=== PATIENT | male | born 1975 | race Caucasian/White ===

== ENCOUNTER 2017-04-25 12:07 | Inpatient (IN) | payer MEDICAID ==
[~2017-04-25] VITALS: Ht 167.6 cm; Wt 88.1 kg
[~2017-04-25 12:07] MED LIST: LANT3I SC; METF500T PO; NATE60TA8 PO; SULF1TAB31 PO
[2017-04-25] MEDS ORDERED: SODIUM CHLORIDE 0.9% 1L BAG IV* STA (13:53)
[2017-04-25] MEDS ORDERED: VANCOMYCIN 1 GM (PMX) 250 ML IVPB SCH (14:00)
[2017-04-25] MEDS ORDERED: IBUPROFEN 600 MG TAB PO ONE (14:00)
[2017-04-25] MEDS ORDERED: CEFTRIAXONE 1 GM/50 ML (PMX) 50 ML IVPB ONE (14:00)
[2017-04-25] MEDS ORDERED: INSULIN LISPRO 100 UNIT/ML VIAL SC STA (14:42)
[2017-04-25 14:45] LABS: BASOPHIL # 0.1 10^3/ul (0.0-0.1); BASOPHILS % 0.7 % (0.0-2.0); EOSINOPHILS # 0.2 10^3/ul (0.0-0.5); HEMOGLOBIN 15.5 g/dl (14.0-18.0); LYMPHOCYTES # 1.4 10^3/ul (0.8-2.9); LYMPHOCYTES % 13.2 % (15.0-51.0); MEAN CORPUSCULAR HEMOGLOBIN 28.1 pg (29.0-33.0); MEAN CORPUSCULAR HGB CONC 33.7 g/dl (32.0-37.0); MEAN CORPUSCULAR VOLUME 83.3 fl (82.0-101.0); MEAN PLATELET VOLUME 9.1 fl (7.4-10.4); MONOCYTE # 0.7 10^3/ul (0.3-0.9); MONOCYTES % 6.3 % (0.0-11.0); NEUTROPHIL # 8.3 10^3/ul (1.6-7.5); NEUTROPHILS % 77.4 % (39.0-77.0); PLATELET COUNT 380 10^3/UL (140-415); RED BLOOD COUNT 5.52 10^6/ul (4.70-6.10); WHITE BLOOD COUNT 10.7 10^3/ul (4.8-10.8)
[2017-04-25 14:46] LABS: ADD UMIC NO; UR ASCORBIC ACID NEGATIVE (NEGATIVE); UR BILIRUBIN (Dip) NEGATIVE (NEGATIVE); UR BLOOD (Dip) NEGATIVE (NEGATIVE); UR CLARITY CLEAR (CLEAR); UR COLOR STRAW (YELLOW); UR GLUCOSE (Dip) 3+ mg/dL (NEGATIVE); UR KETONES (Dip) TRACE mg/dL (NEGATIVE); UR LEUKOCYTE ESTERASE (Dip) NEGATIVE Leu/ul (NEGATIVE); UR NITRITE (Dip) NEGATIVE (NEGATIVE); UR SPECIFIC GRAVITY (Dip) 1.036 (1.003-1.030); UR TOTAL PROTEIN (Dip) NEGATIVE (NEGATIVE); UR UROBILINOGEN (Dip) NEGATIVE (NEGATIVE)
[2017-04-25 15:04] LABS: INR 0.92; PROTIME 12.4 Sec (12.2-14.2)
[2017-04-25 15:05] LABS: PARTIAL THROMBOPLASTIN TIME 28.6 Sec (25.0-35.0)
--- NOTE | 2017-04-25 15:19 | RADRPT ---
PROCEDURE: Left knee radiographs. CLINICAL INDICATION: Left knee pain. TECHNIQUE: Three views. Weight bearing. Frontal, lateral, and oblique. COMPARISON: No prior studies are available for comparison. FINDINGS: There is no fracture or dislocation. There is soft tissue swelling anterior to the proximal tibia and the patella. Articular surfaces are intact. There is no lytic or blastic lesion. There is no radiopaque foreign body. IMPRESSION: 1. Soft tissue swelling to the proximal tibia and the patella. 2. Otherwise unremarkable images of the left knee. RPTAT: QQ .Foreign Guerrero MD, MD Date Time Electronically viewed and signed by .Foreign Guerrero MD, on 04/25/2017 15:18 .R/
[2017-04-25 15:39] LABS: ALANINE AMINOTRANSFERASE 19 IU/L (13-69); ALBUMIN 4.8 g/dl (3.3-4.9); ALBUMIN/GLOBULIN RATIO 1.11; ALKALINE PHOSPHATASE 235 IU/L (42-121); ANION GAP 16 (8-16); ASPARTATE AMINO TRANSFERASE 19 IU/L (15-46); BILIRUBIN,INDIRECT 0.3 mg/dl (0-1.1); BILIRUBIN,TOTAL 0.3 mg/dl (0.2-1.3); BLOOD UREA NITROGEN 11 mg/dl (7-20); CARBON DIOXIDE 29 mmol/L (21-31); CHLORIDE 95 mmol/L (97-110); CREATININE 0.67 mg/dl (0.61-1.24); POTASSIUM 4.3 mmol/L (3.5-5.1); SODIUM 136 mmol/L (135-144); TOTAL PROTEIN 9.1 g/dl (6.1-8.1)
[2017-04-25 15:43] LABS: GLUCOSE 539 mg/dl (70-220)
[2017-04-25 15:53] LABS: TROPONIN-I < 0.012 ng/ml (0.00-0.12)
[2017-04-25] MEDS ORDERED: BISACODYL 10 MG SUPP PR PRN (16:00)
[2017-04-25] MEDS ORDERED: ACETAMINOPHEN 650 MG SUPP PR PRN (16:00)
[2017-04-25] MEDS ORDERED: VANCOMYCIN IV PER PHARMACY XX SCH (16:00)
[2017-04-25] MEDS ORDERED: DOCUSATE SODIUM 100 MG CAP PO PRN (16:00)
[2017-04-25] MEDS ORDERED: NACL 0.9% 3 ML SYG IV SCH (16:00)
[2017-04-25] MEDS ORDERED: morphine 2 MG INJ IV PRN (16:00)
[2017-04-25] MEDS ORDERED: ONDANSETRON 4 MG INJ IV PRN (16:00)
[2017-04-25] MEDS ORDERED: HYDROCODONE/APAP (5/325) TAB PO PRN ×2 (16:00)
[2017-04-25] MEDS ORDERED: MAGNESIUM HYDROXIDE 30ML CUP PO PRN (16:00)
--- NOTE | 2017-04-25 16:06 | ERA ---
ER Documentation Chief Complaint Date/Time DATE: 04/25/17 TIME: 15:58 Chief Complaint LEFT KNEE SWELLING/PAIN X 2 DAYS HPI 41-year-old man complains of left lower extremity pain, swelling, redness 2-3 days. 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 He has had tactile fevers for 1 day, denies vomiting or diarrhea, no paresis or paresthesias, no chest pain or shortness of breath, no recent antibiotic use. Patient denies difficulty ambulating or difficulty bending and extending his knees. ROS All systems reviewed and are negative except as per history of present illness. Medications Home Meds Active Scripts Sulfamethoxazole-Trimethoprim (Bactrim DS Tablet) 800-160 Mg Tab, 1 TAB PO BID for 7 Days, TAB Prov:KEV ALEMAN NP 06/14/15 Insulin Glargine* (Lantus*) 100 Unit/Ml Soln, 20 UNIT SC HS for 30 Days Prov:KEV ALEMAN NP 06/14/15 Metformin Hcl (Glucophage) 500 Mg Tab, 1000 MG PO AC BREAKFAST BEDTIME for 30 Days Prov:KEV ALEMAN NP 06/14/15 Nateglinide* (Starlix*) 60 Mg Tab, 60 MG PO AC MEALS for 30 Days Prov:KEV ALEMAN NP 06/14/15 Allergies Allergies: Coded Allergies: No Known Allergy (Unverified , 06/01/15) PMhx/Soc Diabetes mellitus History of Surgery: No Anesthesia Reaction: No Hx Neurological Disorder: No Hx Respiratory Disorders: No Hx Cardiac Disorders: No Hx Psychiatric Problems: No Hx Miscellaneous Medical Probl: Yes (uncontrolled DM NON COMPLAINT ) Hx Alcohol Use: Yes (BEER TOO MANY) Hx Substance Use: No Hx Tobacco Use: No Smoking Status: Unknown if ever smoked FmHx Family History: No diabetes Physical Exam Vitals Vital Signs Date Time Temp Pulse Resp B/P Pulse Ox O2 Delivery O2 Flow Rate FiO2 04/25/17 12:12 98.7 120 19 122/78 99 Physical Exam GENERAL: Well-developed, well-nourished, well-hydrated, in no apparent distress , looks nontoxic in appearance HEENT: Moist mucous membranes, pink conjunctiva, no cervical spine tenderness or step-off deformities, no goiter, no jaundice or icterus, extraocular movements intact without pain. No submandibular induration, and no pharyngeal erythema NEURO: Alert and oriented 3, cranial nerves II through XII intact bilaterally, pupils equal round reactive to light, no focal deficits or facial asymmetry, sensation intact distally Strength 5/5 in upper and lower extremities bilaterally CARDIAC: Tachycardic and regular, no murmurs rubs or gallops LUNGS: Clear bilaterally no wheezing crackles or stridor ABDOMEN: Soft nontender, no guarding, no rigidity, no rebound, no psoas sign no obturator sign. Normoactive bowel sounds SKIN: Large zone of skin erythema and induration to the anterior aspect of the lower leg beginning at the knee and spreading downward, early abscess formation without purulent discharge EXTREMITIES: No clubbing cyanosis or edema, calves are bilaterally symmetrical, no Homans sign, no popliteal cord sign. Distal pulses equal and bilateral PSYCH: Normal affect without agitation or irritability Result Diagram: 04/25/17 1430 04/25/17 1430 Results 24 hrs Laboratory Tests Test 04/25/17 14:29 04/25/17 14:30 Bedside Glucose 463mg/dL White Blood Count 10.710^3/ul Red Blood Count 5.5210^6/ul Hemoglobin 15.5g/dl Hematocrit 46.0% Mean Corpuscular Volume 83.3fl Mean Corpuscular Hemoglobin 28.1pg Mean Corpuscular Hemoglobin Concent 33.7g/dl Red Cell Distribution Width 12.0% Platelet Count 82130^3/UL Mean Platelet Volume 9.1fl Neutrophils % 77.4% Lymphocytes % 13.2% Monocytes % 6.3% Eosinophils % 2.0% Basophils % 0.7% Nucleated Red Blood Cells % 0.0/100WBC Neutrophils # 8.310^3/ul Lymphocytes # 1.410^3/ul Monocytes # 0.710^3/ul Eosinophils # 0.210^3/ul Basophils # 0.110^3/ul Nucleated Red Blood Cells # 0.010^3/ul Prothrombin Time 12.4Sec Prothrombin Time Ratio 1.0 INR International Normalized Ratio 0.92 Activated Partial Thromboplast Time 28.6Sec Urine Color STRAW Urine Clarity CLEAR Urine pH 6.0 Urine Specific [place] 1.036 Urine Ketones TRACEmg/dL Urine Nitrite NEGATIVEmg/dL Urine Bilirubin NEGATIVEmg/dL Urine Urobilinogen NEGATIVEmg/dL Urine Leukocyte Esterase NEGATIVELeu/ul Urine Hemoglobin NEGATIVEmg/dL Urine Glucose 3+mg/dL Urine Total Protein NEGATIVEmg/dl Sodium Level 136mmol/L Potassium Level 4.3mmol/L Chloride Level 95mmol/L Carbon Dioxide Level 29mmol/L Anion Gap 16 Blood Urea Nitrogen 11mg/dl Creatinine 0.67mg/dl Glucose Level 539mg/dl Lactic Acid Level 1.4mmol/L Calcium Level 10.0mg/dl Total Bilirubin 0.3mg/dl Direct Bilirubin 0.00mg/dl Indirect Bilirubin 0.3mg/dl Aspartate Amino Transf (AST/SGOT) 19IU/L Alanine Aminotransferase (ALT/SGPT) 19IU/L Alkaline Phosphatase 235IU/L Troponin I < 0.012ng/ml Total Protein 9.1g/dl Albumin 4.8g/dl Globulin 4.30g/dl Albumin/Globulin Ratio 1.11 Current Medications Medications (Trade) Dose Ordered Sig/Delisa Route PRN Reason Start Time Stop Time Status Last Admin Dose Admin Sodium Chloride (NS) 2,710 ml BOLUS OVER 2 HOURS STAT IV* 04/25/17 13:53 04/25/17 13:56 DC 04/25/17 14:42 Ibuprofen 600 mg 600 mg ONCE ONCE PO 04/25/17 14:00 04/25/17 14:01 DC 04/25/17 14:40 Ceftriaxone Sodium 50 ml @ 100 mls/hr ONCE ONCE IVPB 04/25/17 14:00 04/25/17 14:29 DC 04/25/17 14:41 Vancomycin HCl (Vancocin) 250 ml @ 125 mls/hr ONCE IVPB 04/25/17 14:00 04/25/17 15:59 04/25/17 15:52 Insulin Human Lispro (Humalog) 10 unit ONCE STAT SC 04/25/17 14:42 04/25/17 14:43 DC Procedures/MDM IV line was established patient was placed on cnmt rhythm strip revealed a sinus tachycardia at 120 bpm with upright P and T waves. Patient was afebrile. Blood cultures were ordered results are pending I will follow-up. I administered 2 L normal saline intravenously, ceftriaxone 1 g IV and vancomycin 1 g IV as well as ibuprofen 600 mg p.o.For hyperglycemia administered lispro insulin 10 units subcutaneous injection 1. CBC was normal electrolytes revealed hyperglycemia 539, liver function tests normal, troponin negative, lactic acid level low. Urine analysis negative for infection. X-ray left knee 3V Interpreted by me: Bones: No fracture Joints: No dislocation Foreign body: None Patient admitted to [facility] for continued medical management and IV antibiotics. Departure Diagnosis: Primary Impression: Type 2 diabetes mellitus with hyperglycemia Qualified Code: E11.65 - Type 2 diabetes mellitus with hyperglycemia, with long-term current use of insulin Additional Impression: Cellulitis of left leg Condition: JM Frye MD Apr 25, 2017 16:06
[2017-04-25] MEDS ORDERED: GLUCAGON 1 MG INJ IM PRN (16:30)
[2017-04-25] MEDS ORDERED: GLUCOSE GEL 15 GRAM TUBE BUCCAL PRN (16:30)
[2017-04-25] MEDS ORDERED: DEXTROSE 50% 50 ML SYRINGE IV PRN ×2 (16:30)
[2017-04-25] MEDS ORDERED: GLUCOSE GEL 15 GRAM TUBE PO PRN ×2 (16:30)
--- NOTE | 2017-04-25 17:11 | HP ---
Date/Time of Note Date/Time of Note DATE: 04/25/17 TIME: 17:06 Assessment/Plan VTE Prophylaxis VTE Prophylaxis Intervention: SCD's Assessment/Plan Chief Complaint/Hosp Course Assessment and plan 1. Left lower extremity cellulitis. Failed outpatient treatment with oral antibiotic. Will start on vancomycin. Consider ID consultation. 2. Diabetes. Patient reports not taking his diabetic medication for over a year. He reports he just stopped taking the medication. A1c was noted at 13.3. Will get clinical unit educator to follow. Start insulin regimen for now. 3.Elevated alkaline phosphatase. Etiology unknown. Monitor level. Admission process time greater than 40 minutes Discussed plan of care with Dr. Knapp Problems: HPI/ROS Admit Date/Time Admit Date/Time Hx of Present Illness This is a 41-year-old male with history of diabetes reportedly stopped taking his diabetic medication over year ago (was only on oral antidiabetic medication ) who came to [facility] due to reports of left knee swelling and erythema or 3 days duration. Patient did report that he was taking oral antibiotic with Bactrim however he had no real improvement. He also reported some pain and difficulty with bending his left knee. He still reports being able to ambulate however. No other associated symptoms. No nausea or vomiting or chills or fevers. He subsequently went to [facility] for further evaluation.On examination patient did have an x-ray of his left lower extremity that showed soft tissue swelling to the proximal tibia and to the patella but otherwise unremarkable. He did have blood work drawn that did show him to have glucose as high as 539 and A1c of 13.3. He remained afebrile. We will evaluate him for the aformentiond issues. PMH/Family/Social Past Medical History Medical/surgical history 1. 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, nl mental status, nl speech Skin: other (erythema left lower extremity) Labs Result Diagram: 04/25/17 1430 04/25/17 1430 Medications Medications Current Medications Ondansetron HCl (Zofran Inj) 4 mg Q6H PRN IV NAUSEA AND/OR VOMITING; Start at 16:00 Acetaminophen (Tylenol Tab) 650 mg Q6H PRN PO PAIN LEVEL 1-3 OR FEVER; Start at 16:00 Acetaminophen (Tylenol Supp) 650 mg Q6H PRN [place] PAIN LEVEL 1-3 OR FEVER; Start 04/25/17 at 16:00 Acetaminophen/ Hydrocodone Bitart ([place] (5/325)) 1 tab Q6H PRN PO MODERATE PAIN LEVEL 4-6; Start 04/25/17 at 16:00 Acetaminophen/ Hydrocodone Bitart ([place] (5/325)) 2 tab Q6H PRN PO SEVERE PAIN LEVEL 7-10; Start 04/25/17 at 16:00 Morphine Sulfate (morphine) 2 mg Q4H PRN IV SEVERE PAIN LEVEL 7-10; Start 04/25 at 16:00 Docusate Sodium (Colace) 100 mg Q12H PRN PO CONSTIPATION; Start 04/25/17 at 16: 00 Magnesium Hydroxide (Milk Of Mag) 30 ml DAILY PRN PO CONSTIPATION; Start at 16:00 Bisacodyl (Dulcolax Supp) 10 mg DAILY PRN [place] CONSTIPATION; Start 04/25/17 at 16 :00 Pantoprazole (Protonix Iv) 40 mg DAILY@06 IV ; Start 04/26/17 at 06:00 Diagnostic Test (Pha) (Accu-Chek) 1 ea 02 XX ; Start 04/26/17 at 02:00 Insulin Glargine (Lantus) 22 unit DAILY@20 SC ; Start 04/25/17 at 20:00 Miscellaneous Information 1 ea NOTE XX ; Start 04/25/17 at 16:30 Glucose (Glutose) 15 gm Q15M PRN PO DECREASED GLUCOSE; Start 04/25/17 at 16:30 Glucose (Glutose) 22.5 gm Q15M PRN PO DECREASED GLUCOSE; Start 04/25/17 at 16: 30 Dextrose (D50w Syringe) 25 ml Q15M PRN IV DECREASED GLUCOSE; Start 04/25/17 at 16:30 Dextrose (D50w Syringe) 50 ml Q15M PRN IV DECREASED GLUCOSE; Start 04/25/17 at 16:30 Glucagon (Glucagen) 1 mg Q15M PRN IM DECREASED GLUCOSE; Start 04/25/17 at 16:30 Glucose 15 gm 15 gm Q15M PRN BUCCAL DECREASED GLUCOSE; Start 04/25/17 at 16:30 Vancomycin HCl 750 mg/Sodium Chloride 150 ml @ 75 mls/hr ONCE IVPB ; Start at 18:00; Stop 04/25/17 at 19:59 Vancomycin HCl (Vancocin) 250 ml @ 125 mls/hr Q8H IVPB ; Start 04/26/17 at 02: 00 JIM BOOGIE Apr 25, 2017 17:11
[2017-04-25] MEDS ORDERED: VANCOMYCIN 750 MG in SOD CHLORIDE 0.9% 150 ML IVPB SCH (18:00)
[2017-04-25] MEDS ORDERED: INSULIN ASPART [NOVOLOG] 3 ML PEN SC SCH (18:00)
[2017-04-25 18:37] VITALS: PULSE 90; TEMP 99.3
[2017-04-25 20:00] VITALS: Ht 167.6 cm; Wt 88.1 kg
[2017-04-25] MEDS ORDERED: INSULIN GLARGINE [LANtus] 3 ML PEN SC SCH (20:00)
[2017-04-25] MEDS: INSULIN ASPART [NOVOLOG] 3 ML PEN SC SCH ×3 (20:00→21:00)
[2017-04-25 20:19] VITALS: BP 141/86; RESP 18
[2017-04-25] MEDS: INSULIN GLARGINE [LANtus] 3 ML PEN SC SCH (23:40)
[2017-04-26] MEDS: ACCU-CHEK XX SCH (02:00)
[2017-04-26 02:38] VITALS: BP 145/83; RESP 18
[2017-04-26] MEDS: VANCOMYCIN 1 GM in NS 250 ML IVPB SCH ×3 (03:26→18:36)
[2017-04-26] MEDS: PANTOPRAZOLE 40 MG INJ IV SCH (05:44)
[2017-04-26 06:53] LABS: ALBUMIN 2.9 g/dl (3.3-4.9); ALBUMIN/GLOBULIN RATIO 1.07; BILIRUBIN,INDIRECT 0.4 mg/dl (0-1.1); BILIRUBIN,TOTAL 0.4 mg/dl (0.2-1.3); CALCIUM 8.7 mg/dl (8.4-10.2); CHOL/HDL RATIO 2.6 RATIO; CREATININE 0.52 mg/dl (0.61-1.24); MAGNESIUM 2.1 mg/dl (1.7-2.5); PHOSPHORUS 2.9 mg/dl (2.5-4.9); TOTAL PROTEIN 5.6 g/dl (6.1-8.1)
[2017-04-26 07:04] LABS: T3 UPTAKE 41.3 % (23.5-40.5)
[2017-04-26 07:17] LABS: THYROID STIMULATING HORMONE 1.52 MIU/L (0.465-4.680)
[2017-04-26] MEDS: INSULIN ASPART [NOVOLOG] 3 ML PEN SC SCH ×7 (08:08→20:41)
[2017-04-26 08:12] VITALS: BP 122/75; RESP 18
[2017-04-26 14:00] VITALS: BP 133/77; RESP 18
[2017-04-26] MEDS: CEFTRIAXONE 1 GM/50 ML (PMX) 50 ML IVPB SCH (14:34)
--- NOTE | 2017-04-26 15:41 | PN ---
Date/Time of Note Date/Time of Note DATE: 04/26/17 TIME: 15:40 Assessment/Plan VTE Prophylaxis VTE Prophylaxis Intervention: SCD's Lines/Catheters IV Catheter Type (from Nrsg): Saline Lock Assessment/Plan Assessment/Plan 1. LLE cellutiisl, left knee cellulitis 2. Poorly controlled DM ,? non compliance 3. Intracatble left knee pain Plan : pt failed outpatient PO abx, Continue IV abx vancomycin, Monitor Cr and electrolyts Diaebtic nurse education consult will follow up SCD for DVT prophylaxis Subjective 24 Hr Interval Summary Free Text/Dictation c/o left knee pain, BP stable, on IV abx vancomycin Exam/Review of Systems Vital Signs Vitals Vital Signs Date Time Temp Pulse Resp B/P Pulse Ox O2 Delivery O2 Flow Rate FiO2 04/26/17 14:00 99.1 96 18 133/77 97 04/25/17 18:37 Room Air Intake and Output 04/25/17 04/25/17 04/26/17 15:00 23:00 07:00 Intake Total 150 ml 250 ml Balance 150 ml 250 ml Exam Constitutional: alert, oriented Psych: nl mood/affect Head: normocephalic Eyes: nl conjunctiva Neck: supple, No jvd Respiratory: clear to auscultation, normal air movement Cardiovascular: regular rate and rhythm Gastrointestinal: soft Musculoskeletal: swelling (left lower extremity with erythema) 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, nl mental status, nl speech Skin: other (erythema left lower extremity) Results Result Diagram: 04/25/17 1430 04/26/17 0541 Results 24 hrs Laboratory Tests Test 04/25/17 16:09 04/25/17 16:40 04/25/17 18:40 04/25/17 20:16 Bedside Glucose 316 H 198 Lactic Acid Level 1.2 1.0 Test 04/25/17 20:23 04/25/17 22:35 04/25/17 23:37 04/26/17 05:41 Bedside Glucose 162 116 237 H Sodium Level 136 Potassium Level 4.0 Chloride Level 104 Carbon Dioxide Level 27 Anion Gap 9 # Blood Urea Nitrogen 8 Creatinine 0.52 L Glucose Level 225 #H Hemoglobin A1c 12.8 H Calcium Level 8.7 Phosphorus Level 2.9 Magnesium Level 2.1 Total Bilirubin 0.4 Direct Bilirubin 0.00 Indirect Bilirubin 0.4 Aspartate Amino Transf (AST/SGOT) 12 L Alanine Aminotransferase (ALT/SGPT) 24 Alkaline Phosphatase 114 # Total Protein 5.6 #L Albumin 2.9 #L Globulin 2.70 Albumin/Globulin Ratio 1.07 Triglycerides Level 89 Cholesterol Level 111 LDL Cholesterol, Calculated 51 HDL Cholesterol 42 Cholesterol/HDL Ratio 2.6 Thyroid Stimulating Hormone (TSH) 1.520 Free Thyroxine Index 3.01 Thyroxine (T4) 7.3 Triiodothyronine (T3) Uptake 41.3 H Test 04/26/17 07:56 04/26/17 12:01 Bedside Glucose 184 120 Medications Medications Current Medications Ondansetron HCl (Zofran Inj) 4 mg Q6H PRN IV NAUSEA AND/OR VOMITING; Start at 16:00 Acetaminophen (Tylenol Tab) 650 mg Q6H PRN PO PAIN LEVEL 1-3 OR FEVER; Start at 16:00 Acetaminophen (Tylenol Supp) 650 mg Q6H PRN OR PAIN LEVEL 1-3 OR FEVER; Start 04/25/17 at 16:00 Acetaminophen/ Hydrocodone Bitart ([place] (5/325)) 1 tab Q6H PRN PO MODERATE PAIN LEVEL 4-6; Start 04/25/17 at 16:00 Acetaminophen/ Hydrocodone Bitart ([place] (5/325)) 2 tab Q6H PRN PO SEVERE PAIN LEVEL 7-10 Last administered on 04/26/17 03:35; Admin Dose 2 TAB; Start at 16:00 Morphine Sulfate (morphine) 2 mg Q4H PRN IV SEVERE PAIN LEVEL 7-10; Start 04/25 at 16:00 Docusate Sodium (Colace) 100 mg Q12H PRN PO CONSTIPATION; Start 04/25/17 at 16: 00 Magnesium Hydroxide (Milk Of Mag) 30 ml DAILY PRN PO CONSTIPATION; Start at 16:00 Bisacodyl (Dulcolax Supp) 10 mg DAILY PRN OR CONSTIPATION; Start 04/25/17 at 16 :00 Pantoprazole (Protonix Iv) 40 mg DAILY@06 IV Last administered on 04/26/17 05: 44; Admin Dose 40 MG; Start 04/26/17 at 06:00 Diagnostic Test (Pha) (Accu-Chek) 1 ea 02 XX ; Start 04/26/17 at 02:00 Miscellaneous Information 1 ea NOTE XX ; Start 04/25/17 at 16:30 Glucose (Glutose) 15 gm Q15M PRN PO DECREASED GLUCOSE; Start 04/25/17 at 16:30 Glucose (Glutose) 22.5 gm Q15M PRN PO DECREASED GLUCOSE; Start 04/25/17 at 16: 30 Dextrose (D50w Syringe) 25 ml Q15M PRN IV DECREASED GLUCOSE; Start 04/25/17 at 16:30 Dextrose (D50w Syringe) 50 ml Q15M PRN IV DECREASED GLUCOSE; Start 04/25/17 at 16:30 Glucagon (Glucagen) 1 mg Q15M PRN IM DECREASED GLUCOSE; Start 04/25/17 at 16:30 Glucose 15 gm 15 gm Q15M PRN BUCCAL DECREASED GLUCOSE; Start 04/25/17 at 16:30 Vancomycin HCl (Vancocin) 250 ml @ 125 mls/hr Q8H IVPB Last administered on 10:29; Admin Dose 125 MLS/HR; Start 04/26/17 at 02:00 Insulin Glargine (Lantus) 20 unit DAILY@20 SC Last administered on 04/25/17 23 :40; Admin Dose 20 UNIT; Start 04/25/17 at 20:00 Miscellaneous Information VANCO TROUGH @ 1,700 ON... ONCE ONCE XX ; Start at 17:00; Stop 04/26/17 at 17:01 Ceftriaxone Sodium (Rocephin) 50 ml @ 100 mls/hr Q24H IVPB Last administered on 04/26/17 14:34; Admin Dose 100 MLS/HR; Start 04/26/17 at 15:00 ALEXIS HRARIS MD Apr 26, 2017 15:41
[2017-04-26] MEDS: ACETAMINOPHEN 325 MG TAB PO PRN (18:02)
[2017-04-26 19:28] VITALS: BP 109/63; RESP 20
--- NOTE | 2017-04-26 19:57 | CONS ---
DATE OF ADMISSION: 04/25/2017 DATE OF CONSULTATION: 04/26/2017 REQUESTING PHYSICIAN: Dr. nKapp. Thank you for this consultation. HISTORY OF PRESENT ILLNESS: This is a 41-year-old, man with a history of diabetes, who is well known to our service from multiple admission. The patient admitted with recurrent left lower extremity cellulitis and possible left knee abscess. The patient has a history of infectious hematoma evacuation of his left knee in the past with a culture at that time grew coag- negative Staph species. The patient was started on IV vancomycin, status post dose of ceftriaxone in the emergency department. He came with a temperature of 98.7, pulse 120, respirations 19, blood pressure 122/78, and saturation 99 on room air. LABORATORY AND DIAGNOSTIC DATA: WBC 10.7, H and H 15.5 and 46, platelets 380, neutrophils 77.4, no bands. Glucose 539. Normal lytes. BUN 11, creatinine 0.67. Of note, his hemoglobin A1c 13.3, alk phos 235, normal bilirubin and LFT negative troponin. Urinalysis revealed no leukocyte esterase or nitrite. X-ray of the knee showed soft tissue swelling to the proximal tibia and the patella, otherwise unremarkable. PAST MEDICAL HISTORY: As per history of present illness. SOCIAL HISTORY: The patient denies smoking, alcohol, or illicits. REVIEW OF SYSTEMS: Review of systems all negative. The patient states he has developed spontaneously left lower extremity swelling and edema, no trauma. Denies nausea, vomiting, or diarrhea. PHYSICAL EXAMINATION: GENERAL: This is a well-developed, middle-aged man, who is alert, in no distress. HEENT: Head atraumatic, normocephalic. Sclerae anicteric. Buccal mucosa pink. NECK: Supple. CHEST: Rise symmetrical. Breath sounds clear. HEART: S1, S2. ABDOMEN: Soft, bowel sounds present. EXTREMITIES: Left lower extremity edema, erythema and marked fluctuance over his knee. DIAGNOSTIC IMPRESSION: This is a middle-aged man with uncontrolled diabetes, admitted with recurrent left lower extremity cellulitis, possible abscess. The patient had previous infected left knee hematoma evacuation done by Dr. Carbajal back in May 2015. He is on IV vancomycin. We will add Rocephin to the regimen. Keep left lower extremity elevated consider evaluation by Ortho Surgery for possible fluid aspiration. Await for blood cultures. Discussed with Dr. España. Dictated By: Zane Harrison NP /yolanda/jeremias /Document#: [id number] MTDD
[2017-04-26] MEDS: INSULIN GLARGINE [LANtus] 3 ML PEN SC SCH (20:49)
[2017-04-27] MEDS: VANCOMYCIN 1.25 GM in SOD CHLORIDE 0.9% 250 ML IVPB SCH ×3 (02:23→17:40)
[2017-04-27] MEDS: ACCU-CHEK XX SCH (02:26)
[2017-04-27 03:00] VITALS: BP 119/75; RESP 20
[2017-04-27] MEDS: PANTOPRAZOLE 40 MG INJ IV SCH (05:27)
[2017-04-27 06:29] LABS: BASOPHIL # 0.1 10^3/ul (0.0-0.1); BASOPHILS % 0.5 % (0.0-2.0); EOSINOPHILS # 0.2 10^3/ul (0.0-0.5); EOSINOPHILS % 1.8 % (0.0-7.0); HEMATOCRIT 40.1 % (42.0-52.0); HEMOGLOBIN 13.2 g/dl (14.0-18.0); LYMPHOCYTES # 1.3 10^3/ul (0.8-2.9); MEAN CORPUSCULAR HEMOGLOBIN 27.7 pg (29.0-33.0); MEAN CORPUSCULAR HGB CONC 32.9 g/dl (32.0-37.0); MEAN CORPUSCULAR VOLUME 84.1 fl (82.0-101.0); MEAN PLATELET VOLUME 9.1 fl (7.4-10.4); MONOCYTE # 0.9 10^3/ul (0.3-0.9); MONOCYTES % 7.8 % (0.0-11.0); NEUTROPHIL # 9.1 10^3/ul (1.6-7.5); NEUTROPHILS % 78.4 % (39.0-77.0); PLATELET COUNT 358 10^3/UL (140-415); RED BLOOD COUNT 4.77 10^6/ul (4.70-6.10); RED CELL DISTRIBUTION WIDTH 12.3 % (11.5-14.5); WHITE BLOOD COUNT 11.6 10^3/ul (4.8-10.8)
[2017-04-27 06:59] LABS: CALCIUM 9.1 mg/dl (8.4-10.2); CREATININE 0.63 mg/dl (0.61-1.24); POTASSIUM 4.2 mmol/L (3.5-5.1)
[2017-04-27 07:01] LABS: INR 1.09; PROTIME 14.1 Sec (12.2-14.2); PT RATIO 1.1
[2017-04-27 07:41] VITALS: BP 118/77; RESP 18
[2017-04-27] MEDS: INSULIN ASPART [NOVOLOG] 3 ML PEN SC SCH ×7 (08:22→20:48)
[2017-04-27 14:03] VITALS: BP 100/64; RESP 20
--- NOTE | 2017-04-27 14:24 | RADRPT ---
PROCEDURE: Left superficial ultrasound of the knee CLINICAL INDICATION: Left knee pain TECHNIQUE: Targeted ultrasound performed overlying the soft tissues of the left anterior knee COMPARISON: The radiographs from 04/25 17 FINDINGS: Directly overlying the palpable area of concern, there is a heterogeneous loculated fluid collection measuring 9.0 x 2.6 x 9.2 cm. IMPRESSION: 1. Heterogeneous fluid collection directly above the prepatellar soft tissues measuring 9.0 x 9.2 x 2.6 cm. Findings are most concerning for abscess in the appropriate clinical setting. RPTAT: EE .Eli Andrew MD, MD Date Time Electronically viewed and signed by .Eli Andrew MD, on 04/27/2017 14:24 .M/
--- NOTE | 2017-04-27 14:27 | PN ---
Date/Time of Note Date/Time of Note DATE: 04/27/17 TIME: 14:20 Assessment/Plan VTE Prophylaxis VTE Prophylaxis Intervention: SCD's Lines/Catheters IV [facility] (from [facility] Saline Lock Assessment/Plan Chief Complaint/Hosp Course Assessment and plan 1. Left lower extremity cellulitis. Failed outpatient treatment with oral antibiotic. Continue antibiotics per ID. 2. Diabetes. Patient reports not taking his diabetic medication for over a year. He reports he just stopped taking the medication. A1c was noted at 13.3. Continue on insulin regimen. Adjust as needed. 3.Elevated alkaline phosphatase. Improved. Will monitor Disposition and plan: Noted with suspect abscess on left knee. Imaging pending. Orthopedic surgeon to follow. Continue in-house monitoring. Antipyretics for fever Discussed plan of care with Dr. Knapp Problems: Subjective 24 Hr Interval Summary Free Text/Dictation no s/s of distress. comfortable at present Exam/Review of Systems Vital Signs Vitals Vital Signs Date Time Temp Pulse Resp B/P Pulse Ox O2 Delivery O2 Flow Rate FiO2 04/27/17 14:03 99.0 102 20 100/64 97 04/25/17 18:37 Room Air Intake and Output 04/26/17 04/26/17 04/27/17 15:00 23:00 07:00 Intake Total 2550 ml 250 ml Balance 2550 ml 250 ml Exam Constitutional: alert, oriented Psych: nl mood/affect Head: normocephalic Eyes: nl conjunctiva Respiratory: clear to auscultation, normal air movement Cardiovascular: regular rate and rhythm Gastrointestinal: non-tender, soft Musculoskeletal: swelling (left knee with erythema, better but appears to have palpable fluid filled cyst underneath) 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, nl mental status, nl speech Results Result Diagram: 04/27/17 0551 04/27/17 0551 Results 24 hrs Laboratory Tests Test 04/26/17 17:10 04/26/17 17:37 04/26/17 20:37 04/27/17 02:26 Vancomycin Level Trough 6.6 L Bedside Glucose 183 186 164 Test 04/27/17 05:51 04/27/17 08:06 04/27/17 12:03 White Blood Count 11.6 H Red Blood Count 4.77 Hemoglobin 13.2 L Hematocrit 40.1 L Mean Corpuscular Volume 84.1 Mean Corpuscular Hemoglobin 27.7 L Mean Corpuscular Hemoglobin Concent 32.9 Red Cell Distribution Width 12.3 Platelet Count 358 Mean Platelet Volume 9.1 Neutrophils % 78.4 H Lymphocytes % 11.0 L Monocytes % 7.8 Eosinophils % 1.8 Basophils % 0.5 Nucleated Red Blood Cells % 0.0 Neutrophils # 9.1 H Lymphocytes # 1.3 Monocytes # 0.9 Eosinophils # 0.2 Basophils # 0.1 Nucleated Red Blood Cells # 0.0 Prothrombin Time 14.1 Prothrombin Time Ratio 1.1 INR International Normalized Ratio 1.09 Activated Partial Thromboplast Time 34.0 Sodium Level 136 Potassium Level 4.2 Chloride Level 101 Carbon Dioxide Level 29 Anion Gap 10 Blood Urea Nitrogen 10 Creatinine 0.63 Glucose Level 195 Calcium Level 9.1 Bedside Glucose 160 221 H Medications Medications Current Medications Ondansetron HCl (Zofran Inj) 4 mg Q6H PRN IV NAUSEA AND/OR VOMITING; Start at 16:00 Acetaminophen (Tylenol Tab) 650 mg Q6H PRN PO PAIN LEVEL 1-3 OR FEVER Last administered on 04/26/17 18:02; Admin Dose 650 MG; Start 04/25/17 at 16:00 Acetaminophen (Tylenol Supp) 650 mg Q6H PRN [place] PAIN LEVEL 1-3 OR FEVER; Start 04/25/17 at 16:00 Acetaminophen/ Hydrocodone Bitart ([place] (5/325)) 1 tab Q6H PRN PO MODERATE PAIN LEVEL 4-6; Start 04/25/17 at 16:00 Acetaminophen/ Hydrocodone Bitart ([place] (5/325)) 2 tab Q6H PRN PO SEVERE PAIN LEVEL 7-10 Last administered on 04/26/17 03:35; Admin Dose 2 TAB; Start at 16:00 Morphine Sulfate (morphine) 2 mg Q4H PRN IV SEVERE PAIN LEVEL 7-10; Start 04/25 at 16:00 Docusate Sodium (Colace) 100 mg Q12H PRN PO CONSTIPATION; Start 04/25/17 at 16: 00 Magnesium Hydroxide (Milk Of Mag) 30 ml DAILY PRN PO CONSTIPATION; Start at 16:00 Bisacodyl (Dulcolax Supp) 10 mg DAILY PRN [place] CONSTIPATION; Start 04/25/17 at 16 :00 Pantoprazole (Protonix Iv) 40 mg DAILY@06 IV Last administered on 04/27/17 05: 27; Admin Dose 40 MG; Start 04/26/17 at 06:00 Diagnostic Test (Pha) (Accu-Chek) 1 ea 02 XX Last administered on 04/27/17 02: 26; Admin Dose 1 EA; Start 04/26/17 at 02:00 Miscellaneous Information 1 ea NOTE XX ; Start 04/25/17 at 16:30 Glucose (Glutose) 15 gm Q15M PRN PO DECREASED GLUCOSE; Start 04/25/17 at 16:30 Glucose (Glutose) 22.5 gm Q15M PRN PO DECREASED GLUCOSE; Start 04/25/17 at 16: 30 Dextrose (D50w Syringe) 25 ml Q15M PRN IV DECREASED GLUCOSE; Start 04/25/17 at 16:30 Dextrose (D50w Syringe) 50 ml Q15M PRN IV DECREASED GLUCOSE; Start 04/25/17 at 16:30 Glucagon (Glucagen) 1 mg Q15M PRN IM DECREASED GLUCOSE; Start 04/25/17 at 16:30 Glucose (Glutose) 15 gm Q15M PRN BUCCAL DECREASED GLUCOSE; Start 04/25/17 at 16 :30 Insulin Glargine 20 unit 20 unit DAILY@20 SC Last administered on 04/26/17 20: 49; Admin Dose 20 UNIT; Start 04/25/17 at 20:00 Ceftriaxone Sodium 50 ml @ 100 mls/hr Q24H IVPB Last administered on 14:34; Admin Dose 100 MLS/HR; Start 04/26/17 at 15:00 Vancomycin HCl/ Sodium Chloride (Vancocin/NS) 250 ml @ 83.333 mls/ hr Q8H IVPB Last administered on 04/27/17 10:06; Admin Dose 83.333 MLS/HR; Start at 02:00 Miscellaneous Information (*Rx Drug Level Order Reminder*) VANCOMYCIN TROUGH AT 0100 ONCE ONCE XX ; Start 04/28/17 at 01:00; Stop 04/28/17 at 01:01 JIM BOOGIE Apr 27, 2017 14:27
[2017-04-27] MEDS: CEFTRIAXONE 1 GM/50 ML (PMX) 50 ML IVPB SCH (15:16)
--- NOTE | 2017-04-27 16:36 | CONS ---
Date/Time of Note Date/Time of Note DATE: 04/27/17 TIME: 16:36 Assessment/Plan Assessment/Plan Chief Complaint/Hosp Course ID PROGRESS NOTE CURRENT ABX: =>Vanco IV + Ceftriaxone 24H INTERVAL SUMMARY * Clinically stable, A/A/O, denies left knee pain * 04/27 US: . Heterogeneous fluid collection directly above the prepatellar soft tissues measuring 9.0 x 9.2 x 2.6 cm. Findings are most concerning for abscess in the appropriate clinical setting. EXAM GEN: VSS, NAD HEENT: Unremarkable NECK: supple CVS: RRR CHEST: Equal chest rise bilaterally without dyspnea on observation ABD: Soft, NT, EXT: warm. left knee and surrounding area edema, erythema SKIN: No rash, no diaphoresis ID ASSESSMENT 41 yo M admit with: 1. SIRS w/ Temp 100.+ range, leukocytosis 2. Acute recurrent left knee cellulitis w/prepatellar abscess * previous infected left knee hematoma evacuation done by Dr. Carbajal back in May 2015. 3. Uncontrolled diabetes with suspected diabetic peripheral neuropathy ( ? ) MRSA Nares-> Pending INVASIVES: PIV ABX ALLERGY: KNDA CURRENT ABX: =>=>Vanco IV + Ceftriaxone ID RECOMMENDATIONS 1. Continue ABX 2. Ortho consult for aspiration of abscess / Problems: Consultation Date/Type/Reason Admit Date/Time Apr 25, 2017 at 15:22 Initial Consult Date Exam/Review of Systems Vital Signs Vitals Vital Signs Date Time Temp Pulse Resp B/P Pulse Ox O2 Delivery O2 Flow Rate FiO2 04/27/17 14:03 99.0 102 20 100/64 97 04/25/17 18:37 Room Air Intake and Output 04/26/17 04/26/17 04/27/17 15:00 23:00 07:00 Intake Total 2550 ml 250 ml Balance 2550 ml 250 ml Results Result Diagram: 04/27/17 0551 04/27/17 0551 Results 24 hrs Laboratory Tests Test 04/26/17 17:10 04/26/17 17:37 04/26/17 20:37 04/27/17 02:26 Vancomycin Level Trough 6.6 L Bedside Glucose 183 186 164 Test 04/27/17 05:51 04/27/17 08:06 04/27/17 12:03 White Blood Count 11.6 H Red Blood Count 4.77 Hemoglobin 13.2 L Hematocrit 40.1 L Mean Corpuscular Volume 84.1 Mean Corpuscular Hemoglobin 27.7 L Mean Corpuscular Hemoglobin Concent 32.9 Red Cell Distribution Width 12.3 Platelet Count 358 Mean Platelet Volume 9.1 Neutrophils % 78.4 H Lymphocytes % 11.0 L Monocytes % 7.8 Eosinophils % 1.8 Basophils % 0.5 Nucleated Red Blood Cells % 0.0 Neutrophils # 9.1 H Lymphocytes # 1.3 Monocytes # 0.9 Eosinophils # 0.2 Basophils # 0.1 Nucleated Red Blood Cells # 0.0 Prothrombin Time 14.1 Prothrombin Time Ratio 1.1 INR International Normalized Ratio 1.09 Activated Partial Thromboplast Time 34.0 Sodium Level 136 Potassium Level 4.2 Chloride Level 101 Carbon Dioxide Level 29 Anion Gap 10 Blood Urea Nitrogen 10 Creatinine 0.63 Glucose Level 195 Calcium Level 9.1 Bedside Glucose 160 221 H Medications Medications Current Medications Ondansetron HCl (Zofran Inj) 4 mg Q6H PRN IV NAUSEA AND/OR VOMITING; Start at 16:00 Acetaminophen (Tylenol Tab) 650 mg Q6H PRN PO PAIN LEVEL 1-3 OR FEVER Last administered on 04/26/17 18:02; Admin Dose 650 MG; Start 04/25/17 at 16:00 Acetaminophen (Tylenol Supp) 650 mg Q6H PRN [place] PAIN LEVEL 1-3 OR FEVER; Start 04/25/17 at 16:00 Acetaminophen/ Hydrocodone Bitart ([place] (5/325)) 1 tab Q6H PRN PO MODERATE PAIN LEVEL 4-6; Start 04/25/17 at 16:00 Acetaminophen/ Hydrocodone Bitart ([place] (5/325)) 2 tab Q6H PRN PO SEVERE PAIN LEVEL 7-10 Last administered on 04/26/17 03:35; Admin Dose 2 TAB; Start at 16:00 Morphine Sulfate (morphine) 2 mg Q4H PRN IV SEVERE PAIN LEVEL 7-10; Start 04/25 at 16:00 Docusate Sodium (Colace) 100 mg Q12H PRN PO CONSTIPATION; Start 04/25/17 at 16: 00 Magnesium Hydroxide (Milk Of Mag) 30 ml DAILY PRN PO CONSTIPATION; Start at 16:00 Bisacodyl (Dulcolax Supp) 10 mg DAILY PRN [place] CONSTIPATION; Start 04/25/17 at 16 :00 Diagnostic Test (Pha) (Accu-Chek) 1 ea 02 XX Last administered on 04/27/17 02: 26; Admin Dose 1 EA; Start 04/26/17 at 02:00 Miscellaneous Information 1 ea NOTE XX ; Start 04/25/17 at 16:30 Glucose (Glutose) 15 gm Q15M PRN PO DECREASED GLUCOSE; Start 04/25/17 at 16:30 Glucose (Glutose) 22.5 gm Q15M PRN PO DECREASED GLUCOSE; Start 04/25/17 at 16: 30 Dextrose (D50w Syringe) 25 ml Q15M PRN IV DECREASED GLUCOSE; Start 04/25/17 at 16:30 Dextrose (D50w Syringe) 50 ml Q15M PRN IV DECREASED GLUCOSE; Start 04/25/17 at 16:30 Glucagon (Glucagen) 1 mg Q15M PRN IM DECREASED GLUCOSE; Start 04/25/17 at 16:30 Glucose (Glutose) 15 gm Q15M PRN BUCCAL DECREASED GLUCOSE; Start 04/25/17 at 16 :30 Insulin Glargine 20 unit 20 unit DAILY@20 SC Last administered on 04/26/17 20: 49; Admin Dose 20 UNIT; Start 04/25/17 at 20:00 Ceftriaxone Sodium 50 ml @ 100 mls/hr Q24H IVPB Last administered on 15:16; Admin Dose 100 MLS/HR; Start 04/26/17 at 15:00 Vancomycin HCl/ Sodium Chloride (Vancocin/NS) 250 ml @ 83.333 mls/ hr Q8H IVPB Last administered on 04/27/17 10:06; Admin Dose 83.333 MLS/HR; Start at 02:00 Miscellaneous Information (*Rx Drug Level Order Reminder*) VANCOMYCIN TROUGH AT 0100 ONCE ONCE XX ; Start 04/28/17 at 01:00; Stop 04/28/17 at 01:01 Pantoprazole (Protonix Tab) 40 mg DAILY@06 PO ; Start 04/28/17 at 06:00 DANE BERGERON NP Apr 27, 2017 16:36
[2017-04-27 20:24] VITALS: BP 115/67; RESP 18
[2017-04-27] MEDS: INSULIN GLARGINE [LANtus] 3 ML PEN SC SCH (20:49)
[2017-04-28 02:31] VITALS: BP 106/64; RESP 20
[2017-04-28] MEDS: VANCOMYCIN 1.25 GM in SOD CHLORIDE 0.9% 250 ML IVPB SCH ×3 (02:47→17:29)
[2017-04-28] MEDS: ACCU-CHEK XX SCH (02:51)
[2017-04-28] MEDS: PANTOPRAZOLE (EC) 40 MG TAB PO SCH (05:26)
[2017-04-28 06:15] LABS: BASOPHIL # 0.1 10^3/ul (0.0-0.1); BASOPHILS % 0.6 % (0.0-2.0); EOSINOPHILS # 0.2 10^3/ul (0.0-0.5); EOSINOPHILS % 1.9 % (0.0-7.0); HEMOGLOBIN 12.4 g/dl (14.0-18.0); LYMPHOCYTES # 1.4 10^3/ul (0.8-2.9); LYMPHOCYTES % 12.7 % (15.0-51.0); MEAN CORPUSCULAR HEMOGLOBIN 27.9 pg (29.0-33.0); MEAN CORPUSCULAR HGB CONC 33.5 g/dl (32.0-37.0); MEAN CORPUSCULAR VOLUME 83.1 fl (82.0-101.0); NEUTROPHIL # 8.5 10^3/ul (1.6-7.5); NEUTROPHILS % 75.4 % (39.0-77.0); PLATELET COUNT 369 10^3/UL (140-415); RED BLOOD COUNT 4.45 10^6/ul (4.70-6.10); RED CELL DISTRIBUTION WIDTH 11.9 % (11.5-14.5); WHITE BLOOD COUNT 11.3 10^3/ul (4.8-10.8)
[2017-04-28 07:15] LABS: CALCIUM 8.8 mg/dl (8.4-10.2); CREATININE 0.61 mg/dl (0.61-1.24); POTASSIUM 4.1 mmol/L (3.5-5.1)
[2017-04-28 07:51] VITALS: BP 105/63; RESP 16
[2017-04-28] MEDS: INSULIN ASPART [NOVOLOG] 3 ML PEN SC SCH ×7 (08:15→20:21)
--- NOTE | 2017-04-28 11:58 | PN ---
Date/Time of Note Date/Time of Note DATE: 04/28/17 TIME: 11:57 Assessment/Plan VTE Prophylaxis VTE Prophylaxis Intervention: SCD's Lines/Catheters IV [facility]from [facility] Saline Lock Assessment/Plan Chief Complaint/Hosp Course Assessment and plan 1. Left lower extremity cellulitis. Failed outpatient treatment with oral antibiotic. Continue antibiotics per ID. 2. Diabetes. Patient reports not taking his diabetic medication for over a year. He reports he just stopped taking the medication. A1c was noted at 13.3. Continue on insulin regimen. Adjust as needed. 3.Elevated alkaline phosphatase. Improved. Will monitor Disposition and plan: Noted with suspect abscess on left knee. Orthopedic surgeon informed. Awaiting evaluation. Will follow up. Continue inpatient monitoring Discussed plan of care with Dr. Knapp Problems: Subjective 24 Hr Interval Summary Free Text/Dictation Patient with reported erythema on the left lower extremity. Swelling appears more as well. Exam/Review of Systems Vital Signs Vitals Vital Signs Date Time Temp Pulse Resp B/P Pulse Ox O2 Delivery O2 Flow Rate FiO2 04/28/17 07:51 98.6 94 16 105/63 97 04/25/17 18:37 Room Air Intake and Output 04/27/17 04/27/17 04/28/17 15:00 23:00 07:00 Intake Total 250 ml 1700 ml 930 ml Balance 250 ml 1700 ml 930 ml Exam Constitutional: alert, oriented Psych: nl mood/affect Head: normocephalic Eyes: nl conjunctiva Respiratory: clear to auscultation, normal air movement Cardiovascular: regular rate and rhythm Gastrointestinal: non-tender, soft Musculoskeletal: swelling (left knee with erythema, better but appears to have palpable fluid filled cyst underneath) 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 intact, nl mental status, nl speech Results Result Diagram: 04/28/17 0525 04/28/17 0525 Results 24 hrs Laboratory Tests Test 04/27/17 12:03 04/27/17 17:12 04/27/17 20:45 04/28/17 01:12 Bedside Glucose 221 H 205 185 Vancomycin Level Trough 10.0 Test 04/28/17 02:51 04/28/17 05:25 04/28/17 08:12 Bedside Glucose 171 139 White Blood Count 11.3 H Red Blood Count 4.45 L Hemoglobin 12.4 L Hematocrit 37.0 L Mean Corpuscular Volume 83.1 Mean Corpuscular Hemoglobin 27.9 L Mean Corpuscular Hemoglobin Concent 33.5 Red Cell Distribution Width 11.9 Platelet Count 369 Mean Platelet Volume 9.0 Neutrophils % 75.4 Lymphocytes % 12.7 L Monocytes % 9.0 Eosinophils % 1.9 Basophils % 0.6 Nucleated Red Blood Cells % 0.0 Neutrophils # 8.5 H Lymphocytes # 1.4 Monocytes # 1.0 H Eosinophils # 0.2 Basophils # 0.1 Nucleated Red Blood Cells # 0.0 Sodium Level 136 Potassium Level 4.1 Chloride Level 101 Carbon Dioxide Level 27 Anion Gap 12 Blood Urea Nitrogen 8 Creatinine 0.61 Glucose Level 180 Calcium Level 8.8 Medications Medications Current Medications Ondansetron HCl (Zofran Inj) 4 mg Q6H PRN IV NAUSEA AND/OR VOMITING; Start at 16:00 Acetaminophen (Tylenol Tab) 650 mg Q6H PRN PO PAIN LEVEL 1-3 OR FEVER Last administered on 04/26/17 18:02; Admin Dose 650 MG; Start 04/25/17 at 16:00 Acetaminophen (Tylenol Supp) 650 mg Q6H PRN [place] PAIN LEVEL 1-3 OR FEVER; Start 04/25/17 at 16:00 Acetaminophen/ Hydrocodone Bitart ([place] (5/325)) 1 tab Q6H PRN PO MODERATE PAIN LEVEL 4-6; Start 04/25/17 at 16:00 Acetaminophen/ Hydrocodone Bitart ([place] (5/325)) 2 tab Q6H PRN PO SEVERE PAIN LEVEL 7-10 Last administered on 04/26/17 03:35; Admin Dose 2 TAB; Start at 16:00 Morphine Sulfate (morphine) 2 mg Q4H PRN IV SEVERE PAIN LEVEL 7-10; Start 04/25 at 16:00 Docusate Sodium (Colace) 100 mg Q12H PRN PO CONSTIPATION; Start 04/25/17 at 16: 00 Magnesium Hydroxide (Milk Of Mag) 30 ml DAILY PRN PO CONSTIPATION; Start at 16:00 Bisacodyl (Dulcolax Supp) 10 mg DAILY PRN [place] CONSTIPATION; Start 04/25/17 at 16 :00 Diagnostic Test (Pha) (Accu-Chek) XX Last administered on 04/28/17 02: 51; Admin Dose 1 EA; Start 04/26/17 at 02:00 Miscellaneous Information 1 ea NOTE XX ; Start 04/25/17 at 16:30 Glucose (Glutose) 15 gm Q15M PRN PO DECREASED GLUCOSE; Start 04/25/17 at 16:30 Glucose (Glutose) 22.5 gm Q15M PRN PO DECREASED GLUCOSE; Start 04/25/17 at 16: 30 Dextrose (D50w Syringe) 25 ml Q15M PRN IV DECREASED GLUCOSE; Start 04/25/17 at 16:30 Dextrose (D50w Syringe) 50 ml Q15M PRN IV DECREASED GLUCOSE; Start 04/25/17 at 16:30 Glucagon (Glucagen) 1 mg Q15M PRN IM DECREASED GLUCOSE; Start 04/25/17 at 16:30 Glucose (Glutose) 15 gm Q15M PRN BUCCAL DECREASED GLUCOSE; Start 04/25/17 at 16 :30 Insulin Glargine 20 unit 20 unit DAILY@20 SC Last administered on 04/27/17 20: 49; Admin Dose 20 UNIT; Start 04/25/17 at 20:00 Ceftriaxone Sodium 50 ml @ 100 mls/hr Q24H IVPB Last administered on 15:16; Admin Dose 100 MLS/HR; Start 04/26/17 at 15:00 Vancomycin HCl/ Sodium Chloride (Vancocin/NS) 250 ml @ 83.333 mls/ hr Q8H IVPB Last administered on 04/28/17 10:56; Admin Dose 83.333 MLS/HR; Start at 02:00 Pantoprazole (Protonix Tab) 40 mg DAILY@06 PO Last administered on 04/28/17 05 :26; Admin Dose 40 MG; Start 04/28/17 at 06:00 JIM BOOGIE Apr 28, 2017 11:58
[2017-04-28 13:59] VITALS: BP 119/65; RESP 16
--- NOTE | 2017-04-28 14:53 | CONS ---
DATE OF ADMISSION: 04/25/2017 DATE OF CONSULTATION: 04/28/2017 CHIEF COMPLAINT: Left knee pain. HISTORY OF PRESENT ILLNESS: This is a 41-year-old male with history of diabetes mellitus, complaining of left knee pain. He has left knee cellulitis. He was on oral antibiotics on an outpatient basis. He is complaining of pain on top of the knee. He has been currently on IV antibiotics. 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 He denies any fevers or chills. He has no other complaints. PAST MEDICAL HISTORY: Diabetes mellitus. MEDICATION: 1. Lantus 100 mg. 2. Metformin 500 mg. 3. Starlix 60 mg. PAST SURGICAL HISTORY: Previous left patellar bursitis irrigation and debridement by Dr. Carbajal. SOCIAL HISTORY: Denies tobacco, alcohol, or drug use. FAMILY HISTORY: None. ALLERGIES: NO KNOWN DRUG ALLERGIES. REVIEW OF SYSTEMS: Negative. PHYSICAL EXAMINATION: VITAL SIGNS: Temperature 98.4, blood pressure 119/65, pulse 108, pulse ox 98. GENERAL: Patient is resting comfortably in no acute distress. EXTREMITIES: Left knee, there is cellulitis over the left knee that has been decreasing. There are no open wounds. There is prepatellar bursitis. He is nontender to palpation. He has full range of motion from 0-120 degrees without pain. He is neurovascularly intact in the left lower extremity. LABORATORY DATA: White blood cell count 11.3. DIAGNOSTIC DATA: X-ray left knee, no fracture or dislocations. There is swelling consistent with prepatellar bursitis. IMPRESSION: A 41-year-old male with history of diabetes mellitus with left knee cellulitis and prepatellar bursitis. PLAN: I recommend continuation of IV antibiotics per infectious disease recommendation. I also recommend outpatient antibiotics. The patient should apply warm compress wrap to the left knee. I also recommend interventional radiology aspiration of the bursa. No surgical intervention is recommended at this time. The patient can follow up in my office on outpatient basis. Dictated By: Saumya Coffey MD /[email or web address] /Document#: [id number]
[2017-04-28] MEDS: CEFTRIAXONE 1 GM/50 ML (PMX) 50 ML IVPB SCH (15:41)
--- NOTE | 2017-04-28 20:18 | CONS ---
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 * 04/27 US: . Heterogeneous fluid collection directly above the prepatellar soft tissues measuring 9.0 x 9.2 x 2.6 cm. Findings are most concerning for abscess in the appropriate clinical setting. EXAM GEN: VSS, NAD HEENT: Unremarkable NECK: supple CVS: RRR CHEST: Equal chest rise bilaterally without dyspnea on observation ABD: Soft, NT, EXT: warm. left knee and surrounding area edema, erythema SKIN: No rash, no diaphoresis ID ASSESSMENT 41 yo M admit with: 1. SIRS w/ Temp 100.+ range, leukocytosis 2. Acute recurrent left knee cellulitis w/prepatellar => Dx per ortho: left knee cellulitis and prepatellar bursitis. * previous infected left knee hematoma evacuation done by Dr. Carbajal back in May 2015. 3. Uncontrolled diabetes with suspected diabetic peripheral neuropathy ( ? ) MRSA Nares-> Pending INVASIVES: PIV ABX ALLERGY: KNDA CURRENT ABX: =>=>Vanco IV + Ceftriaxone ID RECOMMENDATIONS 1. Continue ABX 2. MRSA nares screen pending 3. Final ABX recs pending -- possible DC on PO Bactrim / Problems: Consultation Date/Type/Reason Admit Date/Time Apr 25, 2017 at 15:22 Exam/Review of Systems Vital Signs Vitals Vital Signs Date Time Temp Pulse Resp B/P Pulse Ox O2 Delivery O2 Flow Rate FiO2 04/28/17 13:59 98.4 108 16 119/65 98 04/25/17 18:37 Room Air Intake and Output 04/27/17 04/27/17 04/28/17 14:59 22:59 06:59 Intake Total 250 ml 1450 ml 1180 ml Balance 250 ml 1450 ml 1180 ml Results Result Diagram: 04/28/17 0525 04/28/17 0525 Results 24 hrs Laboratory Tests Test 04/27/17 20:45 04/28/17 01:12 04/28/17 02:51 04/28/17 05:25 Bedside Glucose 185 171 Vancomycin Level Trough 10.0 White Blood Count 11.3 H Red Blood Count 4.45 L Hemoglobin 12.4 L Hematocrit 37.0 L Mean Corpuscular Volume 83.1 Mean Corpuscular Hemoglobin 27.9 L Mean Corpuscular Hemoglobin Concent 33.5 Red Cell Distribution Width 11.9 Platelet Count 369 Mean Platelet Volume 9.0 Neutrophils % 75.4 Lymphocytes % 12.7 L Monocytes % 9.0 Eosinophils % 1.9 Basophils % 0.6 Nucleated Red Blood Cells % 0.0 Neutrophils # 8.5 H Lymphocytes # 1.4 Monocytes # 1.0 H Eosinophils # 0.2 Basophils # 0.1 Nucleated Red Blood Cells # 0.0 Sodium Level 136 Potassium Level 4.1 Chloride Level 101 Carbon Dioxide Level 27 Anion Gap 12 Blood Urea Nitrogen 8 Creatinine 0.61 Glucose Level 180 Calcium Level 8.8 Test 04/28/17 08:12 04/28/17 12:15 04/28/17 17:26 Bedside Glucose 139 162 251 H Medications Medications Current Medications Ondansetron HCl (Zofran Inj) 4 mg Q6H PRN IV NAUSEA AND/OR VOMITING; Start at 16:00 Acetaminophen (Tylenol Tab) 650 mg Q6H PRN PO PAIN LEVEL 1-3 OR FEVER Last administered on 04/26/17 18:02; Admin Dose 650 MG; Start 04/25/17 at 16:00 Acetaminophen (Tylenol Supp) 650 mg Q6H PRN [place] PAIN LEVEL 1-3 OR FEVER; Start 04/25/17 at 16:00 Acetaminophen/ Hydrocodone Bitart ([place] (5/325)) 1 tab Q6H PRN PO MODERATE PAIN LEVEL 4-6; Start 04/25/17 at 16:00 Acetaminophen/ Hydrocodone Bitart ([place] (5/325)) 2 tab Q6H PRN PO SEVERE PAIN LEVEL 7-10 Last administered on 04/26/17 03:35; Admin Dose 2 TAB; Start at 16:00 Morphine Sulfate (morphine) 2 mg Q4H PRN IV SEVERE PAIN LEVEL 7-10; Start 04/25 at 16:00 Docusate Sodium (Colace) 100 mg Q12H PRN PO CONSTIPATION; Start 04/25/17 at 16: 00 Magnesium Hydroxide (Milk Of Mag) 30 ml DAILY PRN PO CONSTIPATION; Start at 16:00 Bisacodyl (Dulcolax Supp) 10 mg DAILY PRN [place] CONSTIPATION; Start 04/25/17 at 16 :00 Diagnostic Test (Pha) (Accu-Chek) 1 ea 02 XX Last administered on 04/28/17 02: 51; Admin Dose 1 EA; Start 04/26/17 at 02:00 Miscellaneous Information 1 ea NOTE XX ; Start 04/25/17 at 16:30 Glucose (Glutose) 15 gm Q15M PRN PO DECREASED GLUCOSE; Start 04/25/17 at 16:30 Glucose (Glutose) 22.5 gm Q15M PRN PO DECREASED GLUCOSE; Start 04/25/17 at 16: 30 Dextrose (D50w Syringe) 25 ml Q15M PRN IV DECREASED GLUCOSE; Start 04/25/17 at 16:30 Dextrose (D50w Syringe) 50 ml Q15M PRN IV DECREASED GLUCOSE; Start 04/25/17 at 16:30 Glucagon (Glucagen) 1 mg Q15M PRN IM DECREASED GLUCOSE; Start 04/25/17 at 16:30 Glucose (Glutose) 15 gm Q15M PRN BUCCAL DECREASED GLUCOSE; Start 04/25/17 at 16 :30 Insulin Glargine 20 unit 20 unit DAILY@20 SC Last administered on 04/27/17 20: 49; Admin Dose 20 UNIT; Start 04/25/17 at 20:00 Ceftriaxone Sodium 50 ml @ 100 mls/hr Q24H IVPB Last administered on 15:41; Admin Dose 100 MLS/HR; Start 04/26/17 at 15:00 Vancomycin HCl/ Sodium Chloride (Vancocin/NS) 250 ml @ 83.333 mls/ hr Q8H IVPB Last administered on 04/28/17 17:29; Admin Dose 83.333 MLS/HR; Start at 02:00 Pantoprazole (Protonix Tab) 40 mg DAILY@06 PO Last administered on 04/28/17 05 :26; Admin Dose 40 MG; Start 04/28/17 at 06:00 DANE BERGERON NP Apr 28, 2017 20:18
[2017-04-28] MEDS: INSULIN GLARGINE [LANtus] 3 ML PEN SC SCH (20:22)
[2017-04-28 20:29] VITALS: BP 122/76; RESP 20
[2017-04-28] MEDS: ACETAMINOPHEN 325 MG TAB PO PRN (21:01)
[2017-04-29] MEDS: ACCU-CHEK XX SCH (02:00)
[2017-04-29 02:13] VITALS: BP 101/59; RESP 19
[2017-04-29] MEDS: VANCOMYCIN 1.25 GM in SOD CHLORIDE 0.9% 250 ML IVPB SCH ×3 (02:25→17:25)
[2017-04-29 06:00] LABS: BASOPHIL # 0.1 10^3/ul (0.0-0.1); BASOPHILS % 0.8 % (0.0-2.0); EOSINOPHILS # 0.3 10^3/ul (0.0-0.5); EOSINOPHILS % 2.2 % (0.0-7.0); HEMATOCRIT 39.1 % (42.0-52.0); HEMOGLOBIN 12.7 g/dl (14.0-18.0); LYMPHOCYTES # 1.7 10^3/ul (0.8-2.9); LYMPHOCYTES % 14.2 % (15.0-51.0); MEAN CORPUSCULAR HEMOGLOBIN 27.2 pg (29.0-33.0); MEAN CORPUSCULAR HGB CONC 32.5 g/dl (32.0-37.0); MEAN CORPUSCULAR VOLUME 83.7 fl (82.0-101.0); MEAN PLATELET VOLUME 8.7 fl (7.4-10.4); MONOCYTE # 1.1 10^3/ul (0.3-0.9); MONOCYTES % 9.4 % (0.0-11.0); NEUTROPHIL # 8.5 10^3/ul (1.6-7.5); NEUTROPHILS % 72.8 % (39.0-77.0); PLATELET COUNT 391 10^3/UL (140-415); RED BLOOD COUNT 4.67 10^6/ul (4.70-6.10); RED CELL DISTRIBUTION WIDTH 12.2 % (11.5-14.5); WHITE BLOOD COUNT 11.6 10^3/ul (4.8-10.8)
[2017-04-29] MEDS: PANTOPRAZOLE (EC) 40 MG TAB PO SCH (06:00)
[2017-04-29 06:17] LABS: CALCIUM 8.9 mg/dl (8.4-10.2); CREATININE 0.57 mg/dl (0.61-1.24); POTASSIUM 3.9 mmol/L (3.5-5.1)
[2017-04-29] MEDS: INSULIN ASPART [NOVOLOG] 3 ML PEN SC SCH ×7 (08:03→20:52)
[2017-04-29 08:06] VITALS: BP 122/73; RESP 18
--- NOTE | 2017-04-29 11:57 | PN ---
Date/Time of Note Date/Time of Note DATE: 04/29/17 TIME: 11:53 Assessment/Plan VTE Prophylaxis VTE Prophylaxis Intervention: SCD's Lines/Catheters [facility] Saline Lock Assessment/Plan Chief Complaint/Hosp Course Assessment and plan 1. Left lower extremity cellulitis. Failed outpatient treatment with oral antibiotic. has been placed on IV vancomycin and Rocephin Orthopedic surgeon has been consulted, continue heat pack and wound care 2. Diabetes. Patient reports not taking his diabetic medication for over a year. He reports he just stopped taking the medication. A1c was noted at 13.3. Continue on insulin regimen. Adjust as needed. Low- carb diet Patient to be discharged home on oral medication community service worker has been consulted 3.Elevated alkaline phosphatase. Improved. Will monitor Disposition and plan: Noted with suspect abscess on left knee. Orthopedic surgeon informed. Plan to discharge home tomorrow if cleared by orthopedic surgeon Problems: Subjective 24 Hr Interval Summary Free Text/Dictation Patient denies of any chest pain or shortness of breath The left knee abscess spontaneously started to drain by itself Patient continues to complain of having mild discomfort in the left knee Afebrile Tolerate oral intake Exam/Review of Systems Vital Signs Vitals Vital Signs Date Time Temp Pulse Resp B/P Pulse Ox O2 Delivery O2 Flow Rate FiO2 04/29/17 08:06 98.2 91 18 122/73 97 04/25/17 18:37 Room Air Intake and Output 04/28/17 04/28/17 04/29/17 15:00 23:00 07:00 Intake Total 250 ml 1700 ml 970 ml Balance 250 ml 1700 ml 970 ml Exam General: The patient is well-developed, Not in acute distress. HEENT: Atraumatic, normocephalic. The pupils are equal and round . Neck: Supple with full range of motion. Chest: Normal expansion of the thorax during inspiration Lungs: Clear to auscultation bilaterally Heart: Normal S1-S2, Regular rhythm and rate. Abdomen: Soft , nontender, nondistended , bowel sounds are present. Extremities: Right knee within normal limits, left knee drainage, no edema no cyanosis Neurologic: Normal mental status,The patient is awake, alert and oriented . Results Result Diagram: 04/29/17 0531 04/29/17 0531 Results 24 hrs Laboratory Tests Test 04/28/17 12:15 04/28/17 17:26 04/28/17 20:19 04/29/17 01:58 Bedside Glucose 162 251 H 240 H 178 Test 04/29/17 05:31 04/29/17 07:58 White Blood Count 11.6 H Red Blood Count 4.67 L Hemoglobin 12.7 L Hematocrit 39.1 L Mean Corpuscular Volume 83.7 Mean Corpuscular Hemoglobin 27.2 L Mean Corpuscular Hemoglobin Concent 32.5 Red Cell Distribution Width 12.2 Platelet Count 391 Mean Platelet Volume 8.7 Neutrophils % 72.8 Lymphocytes % 14.2 L Monocytes % 9.4 Eosinophils % 2.2 Basophils % 0.8 Nucleated Red Blood Cells % 0.0 Neutrophils # 8.5 H Lymphocytes # 1.7 Monocytes # 1.1 H Eosinophils # 0.3 Basophils # 0.1 Nucleated Red Blood Cells # 0.0 Sodium Level 135 Potassium Level 3.9 Chloride Level 102 Carbon Dioxide Level 28 Anion Gap 9 Blood Urea Nitrogen 8 Creatinine 0.57 L Glucose Level 189 Calcium Level 8.9 Bedside Glucose 185 Medications Medications Current Medications Ondansetron HCl (Zofran Inj) 4 mg Q6H PRN IV NAUSEA AND/OR VOMITING; Start at 16:00 Acetaminophen (Tylenol Tab) 650 mg Q6H PRN PO PAIN LEVEL 1-3 OR FEVER Last administered on 04/28/17 21:01; Admin Dose 650 MG; Start 04/25/17 at 16:00 Acetaminophen (Tylenol Supp) 650 mg Q6H PRN [place] PAIN LEVEL 1-3 OR FEVER; Start 04/25/17 at 16:00 Acetaminophen/ Hydrocodone Bitart ([place] (5/325)) 1 tab Q6H PRN PO MODERATE PAIN LEVEL 4-6; Start 04/25/17 at 16:00 Acetaminophen/ Hydrocodone Bitart ([place] (5/325)) 2 tab Q6H PRN PO SEVERE PAIN LEVEL 7-10 Last administered on 04/26/17 03:35; Admin Dose 2 TAB; Start at 16:00 Morphine Sulfate (morphine) 2 mg Q4H PRN IV SEVERE PAIN LEVEL 7-10; Start 04/25 at 16:00 Docusate Sodium (Colace) 100 mg Q12H PRN PO CONSTIPATION; Start 04/25/17 at 16: 00 Magnesium Hydroxide (Milk Of Mag) 30 ml DAILY PRN PO CONSTIPATION; Start at 16:00 Bisacodyl (Dulcolax Supp) 10 mg DAILY PRN [place] CONSTIPATION; Start 04/25/17 at 16 :00 Diagnostic Test (Pha) (Accu-Chek) 1 ea 02 XX Last administered on 04/28/17 02: 51; Admin Dose 1 EA; Start 04/26/17 at 02:00 Miscellaneous Information 1 ea NOTE XX ; Start 04/25/17 at 16:30 Glucose (Glutose) 15 gm Q15M PRN PO DECREASED GLUCOSE; Start 04/25/17 at 16:30 Glucose (Glutose) 22.5 gm Q15M PRN PO DECREASED GLUCOSE; Start 04/25/17 at 16: 30 Dextrose (D50w Syringe) 25 ml Q15M PRN IV DECREASED GLUCOSE; Start 04/25/17 at 16:30 Dextrose (D50w Syringe) 50 ml Q15M PRN IV DECREASED GLUCOSE; Start 04/25/17 at 16:30 Glucagon (Glucagen) 1 mg Q15M PRN IM DECREASED GLUCOSE; Start 04/25/17 at 16:30 Glucose (Glutose) 15 gm Q15M PRN BUCCAL DECREASED GLUCOSE; Start 04/25/17 at 16 :30 Insulin Glargine 20 unit 20 unit DAILY@20 SC Last administered on 04/28/17 20: 22; Admin Dose 20 UNIT; Start 04/25/17 at 20:00 Ceftriaxone Sodium 50 ml @ 100 mls/hr Q24H IVPB Last administered on 15:41; Admin Dose 100 MLS/HR; Start 04/26/17 at 15:00 Vancomycin HCl/ Sodium Chloride (Vancocin/NS) 250 ml @ 83.333 mls/ hr Q8H IVPB Last administered on 04/29/17 10:21; Admin Dose 83.333 MLS/HR; Start at 02:00 Pantoprazole (Protonix Tab) 40 mg DAILY@06 PO Last administered on 04/29/17 06 :00; Admin Dose 40 MG; Start 04/28/17 at 06:00 JAVIER DYER MD Apr 29, 2017 11:57
[2017-04-29] MEDS: CEFTRIAXONE 1 GM/50 ML (PMX) 50 ML IVPB SCH (15:27)
--- NOTE | 2017-04-29 16:35 | PN ---
DATE: 04/29/2017 SUBJECTIVE DATA: Patient is alert, feels good, looks comfortable. Denies pain. No fevers. ANTIMICROBIALS: He is on vancomycin and Rocephin. PHYSICAL EXAMINATION: GENERAL: Well-developed, well-nourished middle-aged man, who is alert, in no distress. HEENT: Head atraumatic, normocephalic. Sclerae anicteric. Buccal mucosa pink. NECK: Supple. CHEST: Chest rise symmetrical. Breath sounds clear. HEART: S1, S2. ABDOMEN: Soft, bowel sounds present. EXTREMITIES: With left knee dressing saturated with blood. Erythema and swelling looks slightly better. ASSESSMENT: 1. Left lower extremities story cellulitis with recurrent infectious hematoma status post drainage in the past by Dr. Carbajal. 2. Diabetes. PLAN: 1. The patient is being seen by Dr. Saumya Gonzalez who recommends antibiotics with warm compress wrap to left knee and Interventional Radiology aspiration of the bursa. 2. No surgical intervention recommended by Ortho at this time. 3. We will send the drainage for culture. 4. Continue him on current antibiotics for now. 5. Keep left lower extremity elevated. 6. We will discuss with primary team if drainage by Interventional Radiology can be performed. Dictated By: Zane Harrison NP /yolanda/jeremias /Document#: [id number]
[2017-04-29 19:58] VITALS: BP 99/60; RESP 20
[2017-04-29] MEDS: INSULIN GLARGINE [LANtus] 3 ML PEN SC SCH (20:51)
[2017-04-30 01:57] VITALS: BP 113/75; RESP 18
[2017-04-30] MEDS: ACCU-CHEK XX SCH (02:00)
[2017-04-30] MEDS: VANCOMYCIN 1.25 GM in SOD CHLORIDE 0.9% 250 ML IVPB SCH ×3 (02:05→18:46)
[2017-04-30] MEDS: PANTOPRAZOLE (EC) 40 MG TAB PO SCH (05:16)
[2017-04-30 06:29] LABS: BASOPHIL # 0.1 10^3/ul (0.0-0.1); BASOPHILS % 0.9 % (0.0-2.0); EOSINOPHILS # 0.4 10^3/ul (0.0-0.5); EOSINOPHILS % 4.1 % (0.0-7.0); HEMATOCRIT 37.4 % (42.0-52.0); HEMOGLOBIN 12.3 g/dl (14.0-18.0); LYMPHOCYTES # 1.4 10^3/ul (0.8-2.9); LYMPHOCYTES % 16.7 % (15.0-51.0); MEAN CORPUSCULAR HGB CONC 32.9 g/dl (32.0-37.0); MEAN PLATELET VOLUME 8.7 fl (7.4-10.4); MONOCYTE # 0.8 10^3/ul (0.3-0.9); MONOCYTES % 9.7 % (0.0-11.0); NEUTROPHIL # 5.7 10^3/ul (1.6-7.5); NEUTROPHILS % 68.1 % (39.0-77.0); PLATELET COUNT 417 10^3/UL (140-415); WHITE BLOOD COUNT 8.4 10^3/ul (4.8-10.8)
[2017-04-30 07:10] LABS: CREATININE 0.52 mg/dl (0.61-1.24); POTASSIUM 4.2 mmol/L (3.5-5.1)
[2017-04-30 07:42] VITALS: BP 111/70; RESP 18
[2017-04-30 08:00] VITALS: BP 105/68; RESP 18
[2017-04-30] MEDS: INSULIN ASPART [NOVOLOG] 3 ML PEN SC SCH ×7 (08:15→20:36)
--- NOTE | 2017-04-30 13:33 | PN ---
Date/Time of Note Date/Time of Note DATE: 04/30/17 TIME: 13:29 Assessment/Plan VTE Prophylaxis VTE Prophylaxis Intervention: other Lines/Catheters [facility] Type [facility]from [facility] Saline Lock Urinary Cath still in place: No Assessment/Plan Chief Complaint/Hosp Course Assessment and plan 1. Left lower extremity cellulitis. Failed outpatient treatment with oral antibiotic. Continue IV vancomycin and Rocephin Orthopedic surgeon has been consulted, continue heat pack and wound care Follow up culture and sensitivity 2. Diabetes. Patient reports not taking his diabetic medication for over a year. He reports he just stopped taking the medication. A1c was noted at 13.3. Continue on insulin regimen. Adjust as needed. Low- carb diet Patient to be discharged home on oral medication natural resources extension educator has been consulted 3.Elevated alkaline phosphatase. Improved. Will monitor Disposition and plan: Noted with suspect abscess on left knee. Orthopedic surgeon informed. Plan to discharge home tomorrow if cleared by orthopedic surgeon Problems: Subjective 24 Hr Interval Summary Free Text/Dictation Patient denies of any chest pain or shortness of breath Denies of any pain or discomfort in the left lower extremity Status post spontaneous drainage of the left knee abscess Exam/Review of Systems Vital Signs Vitals Vital Signs Date Time Temp Pulse Resp B/P Pulse Ox O2 Delivery O2 Flow Rate FiO2 04/30/17 08:00 98.0 78 18 105/68 95 Intake and Output 04/29/17 04/29/17 04/30/17 15:00 23:00 07:00 Intake Total 250 ml 300 ml 370 ml Balance 250 ml 300 ml 370 ml Exam General: The patient is well-developed, Not in acute distress. HEENT: Atraumatic, normocephalic. The pupils are equal and round . Neck: Supple with full range of motion. Chest: Normal expansion of the thorax during inspiration Lungs: Clear to auscultation bilaterally Heart: Normal S1-S2, Regular rhythm and rate. Abdomen: Soft , nontender, nondistended , bowel sounds are present. Extremities: The wound site is dressed and dry dressing with minimal output drainage, no edema no cyanosis Neurologic: Normal mental status,The patient is awake, alert and oriented . Results Result Diagram: 04/30/17 0555 04/30/17 0555 Results 24 hrs Laboratory Tests Test 04/29/17 17:21 04/29/17 20:44 04/30/17 05:55 04/30/17 08:09 Bedside Glucose 171 154 139 White Blood Count 8.4 # Red Blood Count 4.40 L Hemoglobin 12.3 L Hematocrit 37.4 L Mean Corpuscular Volume 85.0 Mean Corpuscular Hemoglobin 28.0 L Mean Corpuscular Hemoglobin Concent 32.9 Red Cell Distribution Width 12.0 Platelet Count 417 H Mean Platelet Volume 8.7 Neutrophils % 68.1 Lymphocytes % 16.7 Monocytes % 9.7 Eosinophils % 4.1 Basophils % 0.9 Nucleated Red Blood Cells % 0.0 Neutrophils # 5.7 Lymphocytes # 1.4 Monocytes # 0.8 Eosinophils # 0.4 Basophils # 0.1 Nucleated Red Blood Cells # 0.0 Sodium Level 137 Potassium Level 4.2 Chloride Level 102 Carbon Dioxide Level 30 Anion Gap 9 Blood Urea Nitrogen 9 Creatinine 0.52 L Glucose Level 164 Calcium Level 9.0 Test 04/30/17 12:27 Bedside Glucose 182 Medications Medications Current Medications Ondansetron HCl (Zofran Inj) 4 mg Q6H PRN IV NAUSEA AND/OR VOMITING; Start at 16:00 Acetaminophen (Tylenol Tab) 650 mg Q6H PRN PO PAIN LEVEL 1-3 OR FEVER Last administered on 04/28/17 21:01; Admin Dose 650 MG; Start 04/25/17 at 16:00 Acetaminophen (Tylenol Supp) 650 mg Q6H PRN [place] PAIN LEVEL 1-3 OR FEVER; Start 04/25/17 at 16:00 Acetaminophen/ Hydrocodone Bitart ([place] (5/325)) 1 tab Q6H PRN PO MODERATE PAIN LEVEL 4-6; Start 04/25/17 at 16:00 Acetaminophen/ Hydrocodone Bitart ([place] (5/325)) 2 tab Q6H PRN PO SEVERE PAIN LEVEL 7-10 Last administered on 04/26/17 03:35; Admin Dose 2 TAB; Start at 16:00 Morphine Sulfate (morphine) 2 mg Q4H PRN IV SEVERE PAIN LEVEL 7-10; Start 04/25 at 16:00 Docusate Sodium (Colace) 100 mg Q12H PRN PO CONSTIPATION; Start 04/25/17 at 16: 00 Magnesium Hydroxide (Milk Of Mag) 30 ml DAILY PRN PO CONSTIPATION; Start at 16:00 Bisacodyl (Dulcolax Supp) 10 mg DAILY PRN [place] CONSTIPATION; Start 04/25/17 at 16 :00 Diagnostic Test (Pha) (Accu-Chek) 1 ea 02 XX Last administered on 04/28/17 02: 51; Admin Dose 1 EA; Start 04/26/17 at 02:00 Miscellaneous Information 1 ea NOTE XX ; Start 04/25/17 at 16:30 Glucose (Glutose) 15 gm Q15M PRN PO DECREASED GLUCOSE; Start 04/25/17 at 16:30 Glucose (Glutose) 22.5 gm Q15M PRN PO DECREASED GLUCOSE; Start 04/25/17 at 16: 30 Dextrose (D50w Syringe) 25 ml Q15M PRN IV DECREASED GLUCOSE; Start 04/25/17 at 16:30 Dextrose (D50w Syringe) 50 ml Q15M PRN IV DECREASED GLUCOSE; Start 04/25/17 at 16:30 Glucagon (Glucagen) 1 mg Q15M PRN IM DECREASED GLUCOSE; Start 04/25/17 at 16:30 Glucose (Glutose) 15 gm Q15M PRN BUCCAL DECREASED GLUCOSE; Start 04/25/17 at 16 :30 Insulin Glargine 20 unit 20 unit DAILY@20 SC Last administered on 04/29/17 20: 51; Admin Dose 20 UNIT; Start 04/25/17 at 20:00 Ceftriaxone Sodium 50 ml @ 100 mls/hr Q24H IVPB Last administered on 15:27; Admin Dose 100 MLS/HR; Start 04/26/17 at 15:00 Vancomycin HCl/ Sodium Chloride (Vancocin/NS) 250 ml @ 83.333 mls/ hr Q8H IVPB Last administered on 04/30/17 10:16; Admin Dose 83.333 MLS/HR; Start at 02:00 Pantoprazole (Protonix Tab) 40 mg DAILY@06 PO Last administered on 04/30/17 05 :16; Admin Dose 40 MG; Start 04/28/17 at 06:00 JAVIER DYER MD Apr 30, 2017 13:33
[2017-04-30 13:44] VITALS: BP 131/75; RESP 18
--- NOTE | 2017-04-30 14:03 | CONS ---
Date/Time of Note Date/Time of Note DATE: 04/30/17 TIME: 14:01 Assessment/Plan Assessment/Plan Chief Complaint/Hosp Course SUBJECTIVE DATA: Patient is alert, feels good, looks comfortable. Denies pain. No fevers. ANTIMICROBIALS: vancomycin and Rocephin. PHYSICAL EXAMINATION: GENERAL: Well-developed, well-nourished middle-aged man, who is alert, in no distress. HEENT: Head atraumatic, normocephalic. Sclerae anicteric. Buccal mucosa pink. NECK: Supple. CHEST: Chest rise symmetrical. Breath sounds clear. HEART: S1, S2. ABDOMEN: Soft, bowel sounds present. EXTREMITIES: LLE looks much better, no fluctuance, edema resolved ASSESSMENT: 1. Left lower extremities cellulitis with recurrent hematoma ==> self drained 2. DM PLAN: Stable, LLE looks better, continue abx, elevation, f/u cx Problems: Consultation Date/Type/Reason Admit Date/Time Apr 25, 2017 at 15:22 Initial Consult Date Type of Consultation: ID Exam/Review of Systems Vital Signs Vitals Vital Signs Date Time Temp Pulse Resp B/P Pulse Ox O2 Delivery O2 Flow Rate FiO2 04/30/17 13:44 98.2 80 18 131/75 97 Intake and Output 04/29/17 04/29/17 04/30/17 15:00 23:00 07:00 Intake Total 250 ml 300 ml 370 ml Balance 250 ml 300 ml 370 ml Results Result Diagram: 04/30/17 0555 04/30/17 0555 Results 24 hrs Laboratory Tests Test 04/29/17 17:21 04/29/17 20:44 04/30/17 05:55 04/30/17 08:09 Bedside Glucose 171 154 139 White Blood Count 8.4 # Red Blood Count 4.40 L Hemoglobin 12.3 L Hematocrit 37.4 L Mean Corpuscular Volume 85.0 Mean Corpuscular Hemoglobin 28.0 L Mean Corpuscular Hemoglobin Concent 32.9 Red Cell Distribution Width 12.0 Platelet Count 417 H Mean Platelet Volume 8.7 Neutrophils % 68.1 Lymphocytes % 16.7 Monocytes % 9.7 Eosinophils % 4.1 Basophils % 0.9 Nucleated Red Blood Cells % 0.0 Neutrophils # 5.7 Lymphocytes # 1.4 Monocytes # 0.8 Eosinophils # 0.4 Basophils # 0.1 Nucleated Red Blood Cells # 0.0 Sodium Level 137 Potassium Level 4.2 Chloride Level 102 Carbon Dioxide Level 30 Anion Gap 9 Blood Urea Nitrogen 9 Creatinine 0.52 L Glucose Level 164 Calcium Level 9.0 Test 04/30/17 12:27 Bedside Glucose 182 Medications Medications Current Medications Ondansetron HCl (Zofran Inj) 4 mg Q6H PRN IV NAUSEA AND/OR VOMITING; Start at 16:00 Acetaminophen (Tylenol Tab) 650 mg Q6H PRN PO PAIN LEVEL 1-3 OR FEVER Last administered on 04/28/17 21:01; Admin Dose 650 MG; Start 04/25/17 at 16:00 Acetaminophen (Tylenol Supp) 650 mg Q6H PRN [place] PAIN LEVEL 1-3 OR FEVER; Start 04/25/17 at 16:00 Acetaminophen/ Hydrocodone Bitart ([place] (5/325)) 1 tab Q6H PRN PO MODERATE PAIN LEVEL 4-6; Start 04/25/17 at 16:00 Acetaminophen/ Hydrocodone Bitart ([place] (5/325)) 2 tab Q6H PRN PO SEVERE PAIN LEVEL 7-10 Last administered on 04/26/17 03:35; Admin Dose 2 TAB; Start at 16:00 Morphine Sulfate (morphine) 2 mg Q4H PRN IV SEVERE PAIN LEVEL 7-10; Start 04/25 at 16:00 Docusate Sodium (Colace) 100 mg Q12H PRN PO CONSTIPATION; Start 04/25/17 at 16: 00 Magnesium Hydroxide (Milk Of Mag) 30 ml DAILY PRN PO CONSTIPATION; Start at 16:00 Bisacodyl (Dulcolax Supp) 10 mg DAILY PRN [place] CONSTIPATION; Start 04/25/17 at 16 :00 Diagnostic Test (Pha) (Accu-Chek) 1 ea 02 XX Last administered on 04/28/17 02: 51; Admin Dose 1 EA; Start 04/26/17 at 02:00 Miscellaneous Information 1 ea NOTE XX ; Start 04/25/17 at 16:30 Glucose (Glutose) 15 gm Q15M PRN PO DECREASED GLUCOSE; Start 04/25/17 at 16:30 Glucose (Glutose) 22.5 gm Q15M PRN PO DECREASED GLUCOSE; Start 04/25/17 at 16: 30 Dextrose (D50w Syringe) 25 ml Q15M PRN IV DECREASED GLUCOSE; Start 04/25/17 at 16:30 Dextrose (D50w Syringe) 50 ml Q15M PRN IV DECREASED GLUCOSE; Start 04/25/17 at 16:30 Glucagon (Glucagen) 1 mg Q15M PRN IM DECREASED GLUCOSE; Start 04/25/17 at 16:30 Glucose (Glutose) 15 gm Q15M PRN BUCCAL DECREASED GLUCOSE; Start 04/25/17 at 16 :30 Insulin Glargine 20 unit 20 unit DAILY@20 SC Last administered on 04/29/17 20: 51; Admin Dose 20 UNIT; Start 04/25/17 at 20:00 Ceftriaxone Sodium 50 ml @ 100 mls/hr Q24H IVPB Last administered on 15:27; Admin Dose 100 MLS/HR; Start 04/26/17 at 15:00 Vancomycin HCl/ Sodium Chloride (Vancocin/NS) 250 ml @ 83.333 mls/ hr Q8H IVPB Last administered on 04/30/17 10:16; Admin Dose 83.333 MLS/HR; Start at 02:00 Pantoprazole (Protonix Tab) 40 mg DAILY@06 PO Last administered on 04/30/17 05 :16; Admin Dose 40 MG; Start 04/28/17 at 06:00 DIANA ROSSI NP Apr 30, 2017 14:03
[2017-04-30] MEDS: CEFTRIAXONE 1 GM/50 ML (PMX) 50 ML IVPB SCH (16:01)
[2017-04-30 19:42] VITALS: BP 108/72; RESP 18
[2017-04-30] MEDS: INSULIN GLARGINE [LANtus] 3 ML PEN SC SCH (20:36)
[2017-05-01] MEDS: ACCU-CHEK XX SCH (01:55)
[2017-05-01 02:00] VITALS: BP 101/57; RESP 18
[2017-05-01] MEDS: VANCOMYCIN 1.25 GM in SOD CHLORIDE 0.9% 250 ML IVPB SCH (02:24)
[2017-05-01] MEDS: PANTOPRAZOLE (EC) 40 MG TAB PO SCH (05:40)
[2017-05-01 06:26] LABS: BASOPHIL # 0.1 10^3/ul (0.0-0.1); BASOPHILS % 1.2 % (0.0-2.0); EOSINOPHILS # 0.4 10^3/ul (0.0-0.5); EOSINOPHILS % 5.2 % (0.0-7.0); HEMATOCRIT 38.8 % (42.0-52.0); HEMOGLOBIN 12.4 g/dl (14.0-18.0); LYMPHOCYTES # 1.6 10^3/ul (0.8-2.9); LYMPHOCYTES % 22.5 % (15.0-51.0); MEAN CORPUSCULAR HEMOGLOBIN 27.1 pg (29.0-33.0); MEAN CORPUSCULAR VOLUME 84.9 fl (82.0-101.0); MEAN PLATELET VOLUME 8.8 fl (7.4-10.4); MONOCYTE # 0.7 10^3/ul (0.3-0.9); NEUTROPHIL # 4.5 10^3/ul (1.6-7.5); NEUTROPHILS % 61.4 % (39.0-77.0); PLATELET COUNT 470 10^3/UL (140-415); RED BLOOD COUNT 4.57 10^6/ul (4.70-6.10); RED CELL DISTRIBUTION WIDTH 12.2 % (11.5-14.5); WHITE BLOOD COUNT 7.3 10^3/ul (4.8-10.8)
[2017-05-01 06:56] LABS: CALCIUM 9.2 mg/dl (8.4-10.2); CREATININE 0.59 mg/dl (0.61-1.24); POTASSIUM 4.3 mmol/L (3.5-5.1)
[2017-05-01 07:58] VITALS: BP 104/66; RESP 16
[2017-05-01] MEDS: INSULIN ASPART [NOVOLOG] 3 ML PEN SC SCH ×4 (08:26→12:15)
--- NOTE | 2017-05-01 11:25 | PDOCDIS ---
Discharge Instructions CONDITION Patient Condition: Good HOME CARE INSTRUCTIONS: Special Diet: carb control ACTIVITY: Activity Restrictions: Slowly Increase Activity Rest between Activity Avoid heavy lifting JAVIER DYER MD May 01, 2017 11:25
[2017-05-01] MEDS ORDERED: METF500T PO (11:29)
[2017-05-01] MEDS ORDERED: CEPH-443 PO (11:29)
[2017-05-01] MEDS ORDERED: HYDR-3498 PO (11:29)
[2017-05-01] MEDS ORDERED: GLIP5TAB13 PO (11:29)
--- NOTE | 2017-05-01 12:56 | CONS ---
Date/Time of Note Date/Time of Note DATE: 05/01/17 TIME: 12:55 Assessment/Plan Assessment/Plan Chief Complaint/Hosp Course SUBJECTIVE DATA: Patient is alert, feels good, looks comfortable. Denies pain. No fevers. ANTIMICROBIALS: Vancomycin and Rocephin. PHYSICAL EXAMINATION: GENERAL: Well-developed, well-nourished middle-aged man, who is alert, in no distress. HEENT: Head atraumatic, normocephalic. Sclerae anicteric. Buccal mucosa pink. NECK: Supple. CHEST: Chest rise symmetrical. Breath sounds clear. HEART: S1, S2. ABDOMEN: Soft, bowel sounds present. EXTREMITIES: LLE looks much better, no fluctuance, edema resolved ASSESSMENT: 1. Left lower extremities eleonora cellulitis with recurrent hematoma ==> self drained 2. DM PLAN: Overall improving, wound culture growing oxacillin sensitive staph aureus susceptible to majority of the antibiotics, anticipate discharge on oral Keflex , follow with primary care physician Problems: Consultation Date/Type/Reason Admit Date/Time Apr 25, 2017 at 15:22 Type of Consultation: ID Exam/Review of Systems Vital Signs Vitals Vital Signs Date Time Temp Pulse Resp B/P Pulse Ox O2 Delivery O2 Flow Rate FiO2 05/01/17 07:58 98.0 78 16 104/66 97 Intake and Output 04/30/17 04/30/17 05/01/17 15:00 23:00 07:00 Intake Total 850 ml 1930 ml 650 ml Balance 850 ml 1930 ml 650 ml Results Result Diagram: 05/01/17 0554 05/01/17 0554 Results 24 hrs Laboratory Tests Test 04/30/17 17:42 04/30/17 20:31 05/01/17 00:40 05/01/17 05:54 Bedside Glucose 190 139 Vancomycin Level Trough 14.6 White Blood Count 7.3 Red Blood Count 4.57 L Hemoglobin 12.4 L Hematocrit 38.8 L Mean Corpuscular Volume 84.9 Mean Corpuscular Hemoglobin 27.1 L Mean Corpuscular Hemoglobin Concent 32.0 Red Cell Distribution Width 12.2 Platelet Count 470 H Mean Platelet Volume 8.8 Neutrophils % 61.4 Lymphocytes % 22.5 Monocytes % 9.0 Eosinophils % 5.2 Basophils % 1.2 Nucleated Red Blood Cells % 0.0 Neutrophils # 4.5 Lymphocytes # 1.6 Monocytes # 0.7 Eosinophils # 0.4 Basophils # 0.1 Nucleated Red Blood Cells # 0.0 Sodium Level 140 Potassium Level 4.3 Chloride Level 103 Carbon Dioxide Level 30 Anion Gap 11 Blood Urea Nitrogen 11 Creatinine 0.59 L Glucose Level 167 Calcium Level 9.2 Test 05/01/17 07:40 05/01/17 11:40 Bedside Glucose 149 195 Medications Medications Current Medications Ondansetron HCl (Zofran Inj) 4 mg Q6H PRN IV NAUSEA AND/OR VOMITING; Start at 16:00 Acetaminophen (Tylenol Tab) 650 mg Q6H PRN PO PAIN LEVEL 1-3 OR FEVER Last administered on 04/28/17 21:01; Admin Dose 650 MG; Start 04/25/17 at 16:00 Acetaminophen (Tylenol Supp) 650 mg Q6H PRN [place] PAIN LEVEL 1-3 OR FEVER; Start 04/25/17 at 16:00 Acetaminophen/ Hydrocodone Bitart ([place] (5/325)) 1 tab Q6H PRN PO MODERATE PAIN LEVEL 4-6; Start 04/25/17 at 16:00 Acetaminophen/ Hydrocodone Bitart ([place] (5/325)) 2 tab Q6H PRN PO SEVERE PAIN LEVEL 7-10 Last administered on 04/26/17 03:35; Admin Dose 2 TAB; Start at 16:00 Morphine Sulfate (morphine) 2 mg Q4H PRN IV SEVERE PAIN LEVEL 7-10; Start 04/25 at 16:00 Docusate Sodium (Colace) 100 mg Q12H PRN PO CONSTIPATION; Start 04/25/17 at 16: 00 Magnesium Hydroxide (Milk Of Mag) 30 ml DAILY PRN PO CONSTIPATION; Start at 16:00 Bisacodyl (Dulcolax Supp) 10 mg DAILY PRN [place] CONSTIPATION; Start 04/25/17 at 16 :00 Diagnostic Test (Pha) (Accu-Chek) 1 ea 02 XX Last administered on 04/28/17 02: 51; Admin Dose 1 EA; Start 04/26/17 at 02:00 Miscellaneous Information 1 ea NOTE XX ; Start 04/25/17 at 16:30 Glucose (Glutose) 15 gm Q15M PRN PO DECREASED GLUCOSE; Start 04/25/17 at 16:30 Glucose (Glutose) 22.5 gm Q15M PRN PO DECREASED GLUCOSE; Start 04/25/17 at 16: 30 Dextrose (D50w Syringe) 25 ml Q15M PRN IV DECREASED GLUCOSE; Start 04/25/17 at 16:30 Dextrose (D50w Syringe) 50 ml Q15M PRN IV DECREASED GLUCOSE; Start 04/25/17 at 16:30 Glucagon (Glucagen) 1 mg Q15M PRN IM DECREASED GLUCOSE; Start 04/25/17 at 16:30 Glucose (Glutose) 15 gm Q15M PRN BUCCAL DECREASED GLUCOSE; Start 04/25/17 at 16 :30 Insulin Glargine 20 unit 20 unit DAILY@20 SC Last administered on 04/30/17 20: 36; Admin Dose 20 UNIT; Start 04/25/17 at 20:00 Ceftriaxone Sodium 50 ml @ 100 mls/hr Q24H IVPB Last administered on 16:01; Admin Dose 100 MLS/HR; Start 04/26/17 at 15:00 Vancomycin HCl/ Sodium Chloride (Vancocin/NS) 250 ml @ 83.333 mls/ hr Q8H IVPB Last administered on 05/01/17 02:24; Admin Dose 83.333 MLS/HR; Start at 02:00 Pantoprazole (Protonix Tab) 40 mg DAILY@06 PO Last administered on 05/01/17 05 :40; Admin Dose 40 MG; Start 04/28/17 at 06:00 DIANA ROSSI NP May 01, 2017 12:56
[2017-05-01 14:00] VITALS: BP 106/63; RESP 18
--- NOTE | 2017-05-01 21:27 | DS ---
DATE OF ADMISSION: 04/25/2017 DATE OF DISCHARGE: 05/01/2017 FINAL DIAGNOSES: 1. Left lower extremity/knee cellulitis and abscess, status post vancomycin, Rocephin. Orthopedic surgeon and ID were consulted. The patient was discharged on Keflex. 2. Diabetic mellitus. Reported not being compliant with medication, hemoglobin to 13.3. The patient was discharged home on metformin and glipizide. The clinical systems educator was consulted. 3. Elevated alkaline phosphate. Stable now. DISCHARGE MEDICATIONS: 1. Metformin 1000 mg twice daily. 2. Glipizide 5 mg orally twice daily. 3. Ovalo. 4. Keflex 500 mg oral 3 times daily #21. ALLERGY: No known drug allergies. LABS: Today: WBC 7.3, hemoglobin 12.4, hematocrit 38.0, platelets 47,000. The sodium 140, potassium 4.3, chloride 103, bicarb 30, BUN 11, creatinine 0.59 and glucose 167, and calcium 9.2. Total cholesterol 111, LDL 51, HDL 42. TSH 1.520. 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 The x-ray of the knee was obtained which shows soft tissue swelling to the proximal tibia and patella. Otherwise, unremarkable ultrasound showed heterogeneous fluid collection directly above the prepatellar soft tissue measuring 9 x 9.2, x 2.6 cm. Finding is most concerning for abscess in the appropriate clinical setting. Infectious disease doctor and orthopedic surgeon was consulted. The abscess spontaneously started to drain by itself. The culture was obtained which showed Staph aureus, sensitive to ciprofloxacin, clindamycin, doxycycline, tobramycin, Levaquin and rifampin. The patient was placed on vancomycin and Rocephin. During the time of admission he has been continued on the regimen. At this time. As per Infectious Disease doctor the patient can be discharged home on Keflex. He has been able to ambulate without any difficulty. I had an extensive talk with him regarding compliance with his diabetic medication. Patient was seen and evaluated by clinical systems educator and has been placed on metformin and glipizide. During the course of hospitalization, he was placed on insulin, although he is refusing to go home on insulin. Therefore at this time, I am going to have had a lengthy talk with him regarding the importance of compliance with the home medication also he has to protect his knee at work and wear the hard knee brace while he was at work. DISCHARGE CONDITION: At time of discharge stable. Dictated By: Kahlil Snyder MD /yolanda/kira /Document#: [id number]
== END 2017-05-01 14:20 | disposition home or self-care (01) | DRG 603 ==
LOC: FTE 12:07 → MS2 15:22
PROVIDERS: ADMIT Internal Medicine; ATTEND Internal Medicine
DX: L03.116 Cellulitis of left lower limb (principal); E11.40 Type 2 diabetes mellitus with diabetic neuropathy, unspecified; E11.65 Type 2 diabetes mellitus with hyperglycemia; L02.416 Cutaneous abscess of left lower limb; Z91.19 Patient's noncompliance with other medical treatment and regimen; B95.61 Methicillin susceptible Staphylococcus aureus infection as the cause of diseases classified elsewhere; M70.42 Prepatellar bursitis, left knee
CPT/HCPCS: 36415; 73562; 76536; 80048; 80053; 80061; 80202; 81003; 82962; 83036; 83605; 83735; 84100; 84436; 84443; 84479; 84484; 85025; 85610; 85730; 87040; 87070; 87081; 96372; 96374; 96375; C9113; J0696; J1815; J3370; J7030; J7050

== ENCOUNTER → 2017-05-16 | Outpatient (CLI) | payer MEDICAID ==
[~2017-05-16] VITALS: Ht 175.3 cm; Wt 85.2 kg
[~2017-05-16] MED LIST changes: +CEPH-443 PO; +GLIP5TAB13 PO; +HYDR-3498 PO; -LANT3I SC; -NATE60TA8 PO; -SULF1TAB31 PO
[2017-05-16 14:07] VITALS: BP 122/80; PULSE 95; RESP 16; Ht 175.3 cm; Wt 85.2 kg
--- NOTE | 2017-05-16 16:06 | PN ---
Date/Time of Note Date/Time of Note DATE: 05/16/17 TIME: 16:00 Outpatient Progress Note Chief Complaint Colitis/diabetes/abnormal LFT HPI Cellulitis/patient was recently hospitalized with acute cellulitis, patient had cellulitis of left leg, improving, no fever chill, no discharge, healing well, Diabetes/no polyps or bleeding hypoglycemia, patient does not like Glucophage, 1 so I will patient states that patient has nausea and upset stomach vomiting or diarrhea and also occasionally sees white stuff, Abnormal LFT/minimal nausea, no vomiting at present, no abdominal pain, no jaundice, Review of Systems Const: No Fever, no chills, no Wt. loss, no Fatigue, normal appetite, no diaphoresis. Eyes: No pain, no discharge, no redness, no visual change, no foreign body. ENT: No pain, no bleeding, no congestion, no sore throat, no dysphagia, no discharge or rhinitis. Lymph: No adenopathy, no tender nodes, no lymphedema. Resp: No SOB, no cough, no sputum, no wheezing, no chest pain. CV: No chest pain, no palpitaions, no JONES, no PND, no edema. GI: Normal appetite, no pain, no nausea, no vomiting, no diarrhea, no blood, no constipation. : No frequency, no urgency, no dysuria, no hematuria, no flank pain, no discharge, no bleeding. Musc: No back pain, no neck pain, no knee pain, no restricted ROM. Skin: No rash, no skin lesions, no erythema, no laceration, no bruising, no pruritus. Cellulitis left leg improving, No bleeding discharge or redness, Neuro: No ACEVEDO, no dizziness, no syncope, no seizure, no focal-weakness. Endo: No polyuria, no polydypsia, no dry-skin, no temp-intolerance. Psych: No hallucinations, no depression, no anxiety, no suicidal ideation. Ext: No edema, no pain, no ulcer, no weakness left leg cellulitis improving,. Physical Exam Vital Signs Date Time Temp Pulse Resp B/P Pulse Ox O2 Delivery O2 Flow Rate FiO2 05/16/17 14:07 97.6 95 16 122/80 99 Room Air General Appearance: A 31 year-old male who appears well-developed, well- nourished, in no acute distress. Slightly obese, HEENT: Head normocephalic, atraumatic. Pupils equal, round, reactive to light and accommodate. Sclerae are no jaundice. Nasal turbinates pink without erythema or nasal discharge. Mucous membranes pink and moist without lesions. Oropharynx clear without any exudate or discharge. NECK: Supple. Trachea midline, No thyromegaly, No cervical lymphadenopathy, No mass, No carotid bruits, No JVD, Carotid pulses 2+ bilaterally. PULMONARY: Clear to auscultaion bilaterally, No retractions, Chest expansion symmetric bilaterally, no rales, no ronchi, no dulness on percussion. CARDIAC: Normal SI and S2, Regular rate and rythm, no murmur, gallop, or rub. GASTROINTESTINAL: Abdomen is soft, non-tender, Non Rigid, No distention, Positive bowel sounds x4 quadrants, Liver normal. SKIN: Warm, dry, no rash, no bruise, no echmosis left leg cellulitis improving, minimal redness, no itching, no bleeding, no redness, no ulcer, EXTREMITIES: Bilateral lower extremities no edema, no phlabitus, pulse palpable , no contracture. No redness ulcer or bleeding at the cellulitis site, MUSCULOSKELETAL: Spine Normal, Non-tender, Normal range of motion, No swelling, no deformity, no clubbing, or cyanosis, the patient has no edema to bilateral lower extremities, dorsalis pedis pulses palpable bilaterally. NEUROLOGIC: The patient is awake, alert, oriented, responding to yes/no questions appropriately, moving all extremities, cranial nerve intact, normal strenght, normal power, normal coordination, normal gait. Allergies Coded Allergies: No Known Allergy (Unverified , 06/01/15) PMH Diabetes/obesity Social Hx No smoking occasional drinking, Family Hx Noncontributory Patient History: Diabetes mellitus in father Assessment/Plan Impression Cellulitis/diabetes/abnormal LFT Plan Patient education done about diabetes and possible complication, Patient advised to strict diet, patient also advised to increase exercise, Patient encouraged to follow with the primary care physician, and take all the readings, Patient complaint of Glucophage causing the side effect, patient is not taking any insulin at present, patient advised to write down the blood sugar numbers, and taken to primary care physician, patient wants to reduce of Glucophage 500 mg twice a day, if the blood sugar remains low then patient can reduce the dose , and adjust with the primary care physician, risk of not taking medication explained, Medications Home Meds Active Scripts Glipizide* (Glipizide*) 5 Mg Tablet, 5 MG PO BID, #60 TAB Prov:JAVIER DYER MD 05/01/17 Metformin Hcl (Glucophage) 500 Mg Tab, 1000 MG PO AC BREAKFAST BEDTIME for 30 Days, #60 Prov:JAVIER DYER MD 05/01/17 Discontinued Scripts Cephalexin* (Keflex*) 500 Mg Capsule, 500 MG PO Q8, #21 CAP Prov:JAVIER DYER MD 05/01/17 Hydrocodone Bit-Acetaminophen (Hydrocodone Bit-APAP) 5-325MG Tablet, 1 TAB PO Q6H Y for MODERATE PAIN LEVEL 4-6 for 1 Day, TAB Prov:JAVIER DYER MD 05/01/17 MARZENA HARRIS MD May 16, 2017 16:06
== END | disposition home or self-care (01) ==
LOC: DCC 14:02
PROVIDERS: ATTEND Internal Medicine
DX: L03.116 Cellulitis of left lower limb (principal); E11.9 Type 2 diabetes mellitus without complications; Z79.84 Long term (current) use of oral hypoglycemic drugs; R79.89 Other specified abnormal findings of blood chemistry